=== PATIENT | male | born 1940 | race Caucasian/White ===

== ENCOUNTER → 2024-03-19 12:13 | Outpatient (REF) | payer MEDICARE, OTHER, SELFPAY ==
[2024-03-19 13:35] LABS: % Basophils 0.8 % (0-2); % Eosinophils 3.5 % (0-6); % Immature Granulocytes 0.4 % (0-0.5); % Lymphocytes 14.3 % (20.5-51.1); % Monocytes 10.5 % (1.7-9.3); % Neutrophils 70.5 % (42.2-75.2); Absolute Basophils 0.1 10^3/uL (0-0.2); Absolute Eosinophils 0.3 10^3/uL (0-0.7); Absolute Lymphocytes 1.4 10^3/uL (1.2-3.4); Absolute Neutrophils 6.7 10^3/uL (1.4-6.5); Hematocrit 38.6 % (39.0-52.0); Hemoglobin 13.3 g/dL (13.0-18.0); Mean Corp Hgb Conc. 34.5 g/dL (33.0-37.0); Mean Corpuscular Hgb 33.2 pg (27.0-31.0); Mean Corpuscular Volume 96.3 fL (80.0-94.0); Mean Platelet Volume 10.1 fL (7.4-10.4); Nucleated Red Blood Cells % 0 % (-); Platelet Count 237 10^3/uL (130-400); Red Blood Cell Count 4.01 10^6/uL (4.70-6.10); Red Cell Dist. Width 13.9 % (11.5-14.5); White Blood Cell Count 9.6 10^3/uL (4.8-10.8)
[2024-03-19 14:48] LABS: ALT (SGPT) 15 U/L (0-50); AST (SGOT) 28 U/L (17-59); Albumin 3.5 g/dl (3.5-5.0); Alkaline Phosphatase 83 U/L (38-126); Blood Urea Nitrogen 22 mg/dl (9-20); Calcium 9.2 mg/dl (8.4-10.2); Carbon Dioxide 26 mmol/L (22-30); Chloride 104 mmol/L (98-107); Glucose 61 mg/dl (70-99); Magnesium 2.1 mg/dl (1.6-2.3); Potassium 4.3 mmol/L (3.5-5.1); Sodium 136 mmol/L (135-145); Total Bilirubin 0.5 mg/dl (0.2-1.3); Total Protein 6.1 g/dl (6.3-8.2); eGFR > 60.00
== END ==
LOC: OLABN 12:13
PROVIDERS: ATTENDING PHYSICIAN Student in an Organized Health Care Education/Training Program
DX: R45.1 Restlessness and agitation (principal); L03.119 Cellulitis of unspecified part of limb
CPT/HCPCS: 80053; 83735; 85025

== ENCOUNTER 2024-07-31 19:07 | Inpatient (IN) | payer MEDICARE, OTHER, SELFPAY ==
[2024-07-31] VITALS (9 sets, daily range): BP systolic 97–120; BP diastolic 47–82; BMI 30.9; BMI 29.5
[2024-07-31 14:56] LABS: % Basophils 0.4 % (0-2); % Eosinophils 1.6 % (0-6); % Immature Granulocytes 0.7 % (0-0.5); % Lymphocytes 9.7 % (20.5-51.1); % Monocytes 10.1 % (1.7-9.3); % Neutrophils 77.5 % (42.2-75.2); Absolute Basophils 0.1 10^3/uL (0-0.2); Absolute Eosinophils 0.2 10^3/uL (0-0.7); Absolute Immature Granulocytes 0.1 10^3/uL (0-0.05); Absolute Lymphocytes 1.3 10^3/uL (1.2-3.4); Absolute Monocytes 1.3 10^3/uL (0.1-0.6); Hematocrit 38.2 % (39.0-52.0); Hemoglobin 12.2 g/dL (13.0-18.0); Mean Corp Hgb Conc. 31.9 g/dL (33.0-37.0); Mean Corpuscular Hgb 32.4 pg (27.0-31.0); Mean Corpuscular Volume 101.3 fL (80.0-94.0); Mean Platelet Volume 9.7 fL (7.4-10.4); Nucleated Red Blood Cells % 0 % (-); Platelet Count 263 10^3/uL (130-400); Red Blood Cell Count 3.77 10^6/uL (4.70-6.10)
--- NOTE | 2024-07-31 15:02 | ED.GENMED ---
History of Present Illness
<eLana Tobar PA-C - Last Filed: 07/31/24 18:31>
General
Chief Complaint: Cold/Flu/URI Symptoms
Source: patient and family
Exam Limitations: none
Time Seen by Provider: 07/31/24 14:57
Nursing documentation reviewed up to this point in time: agreed with
History of Present Illness
History of Present Illness:
Patient is an 84-year-old male with history dementia, TBI, hypertension, hyperlipidemia presenting to the emergency department via EMS from [facility] for evaluation of shortness of breath and cough. Patient's daughter states that she had gone
to visit him on Tuesday and noticed that he had nasal/chest congestion. Apparently today patient seemed worse.
Patient endorses body aches and right sided chest discomfort. He states that he feels short of breath. Patient did receive a DuoNeb while at [facility] with some improvement of symptoms. He has had a productive cough with yellow/green sputum.
Patient does have a history of pneumonia. No known history of CHF.
Past History
<Leana Tobar PA-C - Last Filed: 07/31/24 18:31>
Past History
ED Past Medical History: Arrthythmia (afib), Asthma, GERD, HTN, Hypercholesterolemia, Psychiatric (dementia, anxiety) and Other (anemia, hyokalemia)
Social History
Tobacco: Non-smoker
Alcohol: None
Drug: None
Review of Systems
<Leana Tobar PA-C - Last Filed: 07/31/24 18:31>
Review of Systems
Allergies reviewed?: Yes
All Other Systems: ROS reviewed and negative except as documented in HPI and ROS
Phy Exam
<Leana Tobar PA-C - Last Filed: 07/31/24 18:31>
Physical Exam
Physical Exam:
Vitals: Hypoxic with O2 87% on room air, temp of 99.1F. Otherwise vital signs stable
General: Patient is frequently coughing. Resting on my initial examination
Skin: Warm and dry, no rashes or lesions
Head: Normocephalic, atraumatic
Eyes: Sclera nonicteric. EOMs intact. No nystagmus.
Throat: Protecting airway
Neck: Normal ROM, no cervical spine tenderness, no meningismus
Cardiac: Regular rate and rhythm, no murmurs.
Pulm: Hypoxic with oxygen saturation 87% on room air. Mild expiratory wheeze. Frequent cough.
Abdomen: Abdomen soft. No abdominal tenderness.
Extremities: 1+ pitting edema bilateral lower extremities. Palpable DP pulses bilaterally
Neuro: Grossly intact.
Psychiatric: Normal affect.
Course
<Leana Tobar PA-C - Last Filed: 07/31/24 18:31>
Orders/Labs/Results
Orders:
Orders
07/31/24 14:48
COVID-19 Antigen Urgent
Source: Nasal Swab
Complete Blood Count/With Diff Urgent
Comprehensive Metabolic Panel Urgent
NT-proBNP Urgent
Troponin I Urgent
Comment: ADD ON
07/31/24 Dinner
Cholesterol Lowering
At Your Request: Non-Participating
Cholesterol Lowering: Sodium, 2 Gram
07/31/24 15:05
Portable Chest Xray [CR Chest Portable - 1 View] Urgent
Comment:
Reason For Exam: cough, sob, pox 87%RA
Reason Study Needs to be Portable: Unable to Transport
07/31/24 15:24
INF RAPID [Influenza A+B Rapid Molecular] Urgent
JANY Source: Nasal Swab
Specimen Description:
07/31/24 15:25
Add On- LAB Urgent
Tests Added?: troponin
Electrocardiogram (*1) Urgent
Reason for Study: Chest Pain
Acetaminophen [Tylenol] 650 mg PO NOW STA
Ipratropium/Albuterol Sulfate [Duoneb] 3 ml INH R NOW STA
07/31/24 15:26
EKG- Treatment ONCE
07/31/24 16:35
Furosemide [Lasix] 40 mg IV NOW STA
07/31/24 16:45
CefTRIAXone [Rocephin] 1,000 mg IV NOW STA
Furosemide [Lasix] 100 mg IV NOW STA
07/31/24 16:52
Doxycycline Hyclate [Vibramycin] 100 mg 0.9% Sodium Chloride 250 ml [Nss] 250 ml IV NOW
07/31/24 17:44
Lactic Acid Urgent
Procalcitonin Urgent
PCT Algorithmm Indication: Sepsis
Troponin I Urgent
07/31/24 17:45
Electrocardiogram (*1) Urgent
Reason for Study: Chest Pain
EKG- Treatment ONCE
07/31/24 18:25
MRSA Screen Routine
JANY Source: Nose
Specimen Description:
Sputum Culture [Respiratory Culture/Gram Stain] Routine
JANY Source: Sputum
Specimen Description:
07/31/24 18:35
Admit/Transfer Patient As Directed
Co-Sign Provider:
Level of Care: Inpatient admission
Assign to:: Telemetry
Physician / Group: theodore smith
Diagnosis: hypoxia NEW chf, also PNa
Reason for Telemetry: Acute Heart Failure
Date to Stop Telemetry: 08/03/24
Time to Stop Telemetry: 11:00
Reason for Hospitalization: hypoxia NEW chf, also PNa
Expected length of stay greater than two midnights?: Yes
ELOS- Estimated Length of Stay in days: 5
I certify the patient meets the requirements for IP care: Yes
Code Status As Directed
Resuscitation Status: Do not resuscitate
Reached after discussion with pt or family/Healthcare POA: Yes
Based on pt advanced directive or healthcare POA form: Yes
Decision communicated with: Per Yvette and daughter at bedside
07/31/24 18:36
DNR Bracelet Application ONCE
07/31/24 18:40
PRN Pain Medication Management As Directed
May give lesser potent ordered pain med per pt: Yes
preference::
Protocol:: Medication orders for pain may be administered in a
manner that supports deferring to patient preference
when the pt is:
- Requesting an ordered lesser potent pain medication.
Least to most potent pain medications are defined
as: acetaminophen < NSAID < tramadol < opioids
(morphine, oxycodone, hydromorphone).
- Requesting a lesser dose of the same medication IF
ORDERED.
- Requesting a less intrusive route of administration
if both routes are prescribed by the provider (PO <
IV).
07/31/24 19:57
Bisacodyl [Dulcolax] 10 mg RECTAL DAILYPRN PRN
Clobetasol Propionate [Clobetasol Propionate 0.05% Cream] See Dose Instructions TOPICAL BIDPRN PRN
Guaifenesin/Dextromethorphan [Robitussin Dm] 10 ml PO Q4HPRN PRN
Ipratropium/Albuterol Sulfate [Duoneb] 3 ml INH R Q6HPRN PRN
Magnesium Hydroxide [Milk of Magnesia] 30 ml PO HSPRN PRN
07/31/24 19:57
Activity As Directed
Activity Level: With Assistance
Comment: Patient is wheelchair-bound
Intake/ Output As Directed
Frequency: Per unit guidelines
Vital Signs As Directed
Frequency: Per unit guidelines
Weight As Directed
Frequency: Daily
O2 Therapy [RESP] Routine
Nasal Cannula Liter Flow: 3 LPM
Titrate/Wean O2 to maintain O2 sat greater than (%): 92
Pulse Ox/spot Check [RESP] Routine
Quantity: 1
Rx Incentive Spirometry [RESP] Routine
Frequency: q1h while awake
Ot Eval And Treat Routine
Pt Eval And Treat Routine
Treatment: Patient is wheelchair-bound
Activity Level: With Assistance
Speech Therapy Eval & Treat Routine
DX Deep Vein Thrombosis Video Routine
07/31/24 20:00
Piperacillin/Tazo 3.375 Gram [Zosyn] 3.375 gram in 50 ml IV Q6H
Tiotropium Brohard 2.5 Mcg [Spiriva Respimat 2.5 Mcg] 2 puff INH R QPM
07/31/24 21:00
Troponin I Urgent
07/31/24 22:00
Loratadine [Claritin] 10 mg PO HS
Melatonin 10 mg PO HS
Montelukast Sodium [Singulair] 10 mg PO HS
08/01/24 06:00
Echo 2D MMode Color/Doppler IN AM
Reason for Study: NEw chf
Cardiovascular Evaluation IN AM
Complete Blood Count/With Diff IN AM
Comprehensive Metabolic Panel IN AM
08/01/24 08:00
Aspirin Low Dose EC [Aspir Low (Enteric Coated)] 81 mg PO DAILY
Paroxetine [Paxil] 20 mg PO DAILY
08/01/24 08:30
Acetaminophen [Tylenol] 1,000 mg PO TID@0830,1330,1830
08/01/24 18:00
Amlodipine [Norvasc] 10 mg PO QPM
Enoxaparin Sodium [Lovenox] 40 mg SC QPM
08/02/24 06:00
Complete Blood Count/With Diff IN AM
Comprehensive Metabolic Panel IN AM
08/03/24 06:00
Complete Blood Count/With Diff IN AM
Comprehensive Metabolic Panel IN AM
08/03/24 11:00
DC Protocol for Telemetry ONCE
08/04/24 06:00
Complete Blood Count/With Diff IN AM
Comprehensive Metabolic Panel IN AM
Abnormal Lab Results
07/31/24 07/31/24
14:48 17:44
WBC 13.0 H 10^3/uL
(4.8-10.8)
RBC 3.77 L 10^6/uL
(4.70-6.10)
Hgb 12.2 L g/dL
(13.0-18.0)
Hct 38.2 L %
(39.0-52.0)
MCV 101.3 H fL
(80.0-94.0)
MCH 32.4 H pg
(27.0-31.0)
MCHC 31.9 L g/dL
(33.0-37.0)
RDW 15.0 H %
(11.5-14.5)
Abs Immat Gran (auto) 0.1 H 10^3/uL
(0-0.05)
Absolute Neuts (auto) 10.0 H 10^3/uL
(1.4-6.5)
Absolute Monos (auto) 1.3 H 10^3/uL
(0.1-0.6)
Immature Gran % 0.7 H %
(0-0.5)
Neutrophils % 77.5 H %
(42.2-75.2)
Lymphocytes % 9.7 L %
(20.5-51.1)
Monocytes % 10.1 H %
(1.7-9.3)
Potassium 5.2 H mmol/L
(3.5-5.1)
Chloride 108 H mmol/L
(98-107)
Carbon Dioxide 19 L mmol/L
(22-30)
BUN 37 H mg/dl
(9-20)
Glucose 102 H mg/dl
(70-99)
Lactic Acid 2.8 H mmol/L
(0.7-2.0)
AST 86 H U/L
(17-59)
ALT 56 H U/L
(0-50)
Troponin I 0.561 H* ng/ml 0.513 H* ng/ml
07/31/24 14:48
07/31/24 14:48
Vital Signs
Initial and Last Documented VS:
Initial Vital Signs
Pulse Resp Pulse Ox
106 20 94
07/31/24 14:48 07/31/24 14:48 07/31/24 14:48
Last Documented Vital Signs
Temp Pulse Resp BP Pulse Ox
98.5 F 89 20 110/75 95
07/31/24 20:22 07/31/24 20:22 07/31/24 20:22 07/31/24 20:22 07/31/24 20:22
<Lauro Araujo, DO - Last Filed: 07/31/24 20:37>
Orders/Labs/Results
Orders:
Orders
07/31/24 14:48
COVID-19 Antigen Urgent
Source: Nasal Swab
Complete Blood Count/With Diff Urgent
Comprehensive Metabolic Panel Urgent
NT-proBNP Urgent
Troponin I Urgent
Comment: ADD ON
07/31/24 Dinner
Cholesterol Lowering
At Your Request: Non-Participating
Cholesterol Lowering: Sodium, 2 Gram
07/31/24 15:05
Portable Chest Xray [CR Chest Portable - 1 View] Urgent
Comment:
Reason For Exam: cough, sob, pox 87%RA
Reason Study Needs to be Portable: Unable to Transport
07/31/24 15:24
INF RAPID [Influenza A+B Rapid Molecular] Urgent
JANY Source: Nasal Swab
Specimen Description:
07/31/24 15:25
Add On- LAB Urgent
Tests Added?: troponin
Electrocardiogram (*1) Urgent
Reason for Study: Chest Pain
Acetaminophen [Tylenol] 650 mg PO NOW STA
Ipratropium/Albuterol Sulfate [Duoneb] 3 ml INH R NOW STA
07/31/24 15:26
EKG- Treatment ONCE
07/31/24 16:35
Furosemide [Lasix] 40 mg IV NOW STA
07/31/24 16:45
CefTRIAXone [Rocephin] 1,000 mg IV NOW STA
Furosemide [Lasix] 100 mg IV NOW STA
07/31/24 16:52
Doxycycline Hyclate [Vibramycin] 100 mg 0.9% Sodium Chloride 250 ml [Nss] 250 ml IV NOW
07/31/24 17:44
Lactic Acid Urgent
Procalcitonin Urgent
PCT Algorithmm Indication: Sepsis
Troponin I Urgent
07/31/24 17:45
Electrocardiogram (*1) Urgent
Reason for Study: Chest Pain
EKG- Treatment ONCE
07/31/24 18:25
MRSA Screen Routine
JANY Source: Nose
Specimen Description:
Sputum Culture [Respiratory Culture/Gram Stain] Routine
JANY Source: Sputum
Specimen Description:
07/31/24 18:35
Admit/Transfer Patient As Directed
Co-Sign Provider:
Level of Care: Inpatient admission
Assign to:: Telemetry
Physician / Group: theodore smith
Diagnosis: hypoxia NEW chf, also PNa
Reason for Telemetry: Acute Heart Failure
Date to Stop Telemetry: 08/03/24
Time to Stop Telemetry: 11:00
Reason for Hospitalization: hypoxia NEW chf, also PNa
Expected length of stay greater than two midnights?: Yes
ELOS- Estimated Length of Stay in days: 5
I certify the patient meets the requirements for IP care: Yes
Code Status As Directed
Resuscitation Status: Do not resuscitate
Reached after discussion with pt or family/Healthcare POA: Yes
Based on pt advanced directive or healthcare POA form: Yes
Decision communicated with: Per Yvette and daughter at bedside
07/31/24 18:36
DNR Bracelet Application ONCE
07/31/24 18:40
PRN Pain Medication Management As Directed
May give lesser potent ordered pain med per pt: Yes
preference::
Protocol:: Medication orders for pain may be administered in a
manner that supports deferring to patient preference
when the pt is:
- Requesting an ordered lesser potent pain medication.
Least to most potent pain medications are defined
as: acetaminophen < NSAID < tramadol < opioids
(morphine, oxycodone, hydromorphone).
- Requesting a lesser dose of the same medication IF
ORDERED.
- Requesting a less intrusive route of administration
if both routes are prescribed by the provider (PO <
IV).
07/31/24 19:57
Bisacodyl [Dulcolax] 10 mg RECTAL DAILYPRN PRN
Clobetasol Propionate [Clobetasol Propionate 0.05% Cream] See Dose Instructions TOPICAL BIDPRN PRN
Guaifenesin/Dextromethorphan [Robitussin Dm] 10 ml PO Q4HPRN PRN
Ipratropium/Albuterol Sulfate [Duoneb] 3 ml INH R Q6HPRN PRN
Magnesium Hydroxide [Milk of Magnesia] 30 ml PO HSPRN PRN
07/31/24 19:57
Activity As Directed
Activity Level: With Assistance
Comment: Patient is wheelchair-bound
Intake/ Output As Directed
Frequency: Per unit guidelines
Vital Signs As Directed
Frequency: Per unit guidelines
Weight As Directed
Frequency: Daily
O2 Therapy [RESP] Routine
Nasal Cannula Liter Flow: 3 LPM
Titrate/Wean O2 to maintain O2 sat greater than (%): 92
Pulse Ox/spot Check [RESP] Routine
Quantity: 1
Rx Incentive Spirometry [RESP] Routine
Frequency: q1h while awake
Ot Eval And Treat Routine
Pt Eval And Treat Routine
Treatment: Patient is wheelchair-bound
Activity Level: With Assistance
Speech Therapy Eval & Treat Routine
DX Deep Vein Thrombosis Video Routine
07/31/24 20:00
Piperacillin/Tazo 3.375 Gram [Zosyn] 3.375 gram in 50 ml IV Q6H
Tiotropium Brohard 2.5 Mcg [Spiriva Respimat 2.5 Mcg] 2 puff INH R QPM
07/31/24 21:00
Troponin I Urgent
07/31/24 22:00
Loratadine [Claritin] 10 mg PO HS
Melatonin 10 mg PO HS
Montelukast Sodium [Singulair] 10 mg PO HS
08/01/24 06:00
Echo 2D MMode Color/Doppler IN AM
Reason for Study: NEw chf
Cardiovascular Evaluation IN AM
Complete Blood Count/With Diff IN AM
Comprehensive Metabolic Panel IN AM
08/01/24 08:00
Aspirin Low Dose EC [Aspir Low (Enteric Coated)] 81 mg PO DAILY
Paroxetine [Paxil] 20 mg PO DAILY
08/01/24 08:30
Acetaminophen [Tylenol] 1,000 mg PO TID@0830,1330,1830
08/01/24 18:00
Amlodipine [Norvasc] 10 mg PO QPM
Enoxaparin Sodium [Lovenox] 40 mg SC QPM
08/02/24 06:00
Complete Blood Count/With Diff IN AM
Comprehensive Metabolic Panel IN AM
08/03/24 06:00
Complete Blood Count/With Diff IN AM
Comprehensive Metabolic Panel IN AM
08/03/24 11:00
DC Protocol for Telemetry ONCE
08/04/24 06:00
Complete Blood Count/With Diff IN AM
Comprehensive Metabolic Panel IN AM
Abnormal Lab Results
07/31/24 07/31/24
14:48 17:44
WBC 13.0 H 10^3/uL
(4.8-10.8)
RBC 3.77 L 10^6/uL
(4.70-6.10)
Hgb 12.2 L g/dL
(13.0-18.0)
Hct 38.2 L %
(39.0-52.0)
MCV 101.3 H fL
(80.0-94.0)
MCH 32.4 H pg
(27.0-31.0)
MCHC 31.9 L g/dL
(33.0-37.0)
RDW 15.0 H %
(11.5-14.5)
Abs Immat Gran (auto) 0.1 H 10^3/uL
(0-0.05)
Absolute Neuts (auto) 10.0 H 10^3/uL
(1.4-6.5)
Absolute Monos (auto) 1.3 H 10^3/uL
(0.1-0.6)
Immature Gran % 0.7 H %
(0-0.5)
Neutrophils % 77.5 H %
(42.2-75.2)
Lymphocytes % 9.7 L %
(20.5-51.1)
Monocytes % 10.1 H %
(1.7-9.3)
Potassium 5.2 H mmol/L
(3.5-5.1)
Chloride 108 H mmol/L
(98-107)
Carbon Dioxide 19 L mmol/L
(22-30)
BUN 37 H mg/dl
(9-20)
Glucose 102 H mg/dl
(70-99)
Lactic Acid 2.8 H mmol/L
(0.7-2.0)
AST 86 H U/L
(17-59)
ALT 56 H U/L
(0-50)
Troponin I 0.561 H* ng/ml 0.513 H* ng/ml
07/31/24 14:48
07/31/24 14:48
Vital Signs
Initial and Last Documented VS:
Initial Vital Signs
Pulse Resp Pulse Ox
106 20 94
07/31/24 14:48 07/31/24 14:48 07/31/24 14:48
Last Documented Vital Signs
Temp Pulse Resp BP Pulse Ox
98.5 F 89 20 110/75 95
07/31/24 20:22 07/31/24 20:22 07/31/24 20:22 07/31/24 20:22 07/31/24 20:22
<Leaan Tobar PA-C - Last Filed: 07/31/24 18:31>
MDM/Problems Addressed
Differential Diagnosis Includes:
Not limited to: Viral illness, bronchitis, pneumonia, CHF, COPD, asthma, etc.
MDM/Problems Addressed:
84-year-old male presenting with a few days of cough and shortness of breath. No history of CHF. Patient found to be hypoxic to 87% on room air upon arrival to emergency department was placed on 3 L nasal cannula. Patient is a temp of 99.1F.
Otherwise he is stable. Physical exam as above. Patient is resting although with frequent productive cough. Heart regular rate and rhythm. He does have mild increased work of breathing with mild expiratory wheeze. Mild pitting edema of left
lower extremity. Abdomen soft nontender. Clinical picture with higher suspicion for infectious process. Other considerations include CHF, restrictive airway disease, pulmonary edema, etc. Will obtain basic labs, proBNP, troponin, viral swabs,
and chest x-ray. Will give DuoNeb and Tylenol. Will closely monitor and reassess.
Update: Labs reviewed. Leukocytosis of 13.0. Mild anemia. Findings of [place] [address]. Troponin found to be elevated at 0.561. EKG without any acute ischemic changes. Suspect troponin elevation likely
secondary to demand hypoxia. Low suspicion for ACS. Chest x-ray performed which does show pulmonary edema. Clinical picture most suspicious for infectious etiology such as pneumonia. However�there may be a component of CHF, as well. Given
hypoxia�patient will require admission to hospital. Will start patient on IV Rocephin, doxycycline for suspected underlying pneumonia and diurese with IV Lasix.
Chronic conditions affecting care:
Dementia
Acute Exacerbation and/or Progression of Chronic Illness:
N/A
<Leana Tobar PA-C - Last Filed: 07/31/24 18:31>
*Radiology
Radiology exam reviewed: preliminary read by ED provider and radiology read reviewed (Pulmonary edema, possible CHF)
*Pulse Oximetry
Patient hypoxic: yes (O2 87% on room air-placed on nasal cannula)
*EKG
Interpreted by ED Provider?: Yes
EKG Intrepretation Date: 07/31/24
Interpretation: normal
Comparison EKG: no changes
Heart Rate: 83
Rate: normal
Rhythm: sinus
[place]: normal axis
Interval: normal QT interval
QRS Pattern: normal QRS
Ischemia: non-specific ST changes
*[employer] Interpretation
Rate: normal
Interpretation: normal
Heart Rate: 86
Rhythm: sinus
*Critical Care Note
Total Time (30-74mins, 75-104mins- exclusive of procedures): Not Applicable
<Leana Tobar PA-C - Last Filed: 07/31/24 18:31>
Patient Management
Discussion with other providers: Hospitalist
Escalation/DeEscalation of care consider admission/obs:
Admit for IV antibiotics, supplemental oxygen, diuresis
ED Attending Note
<Leana Tobar PA-C - Last Filed: 07/31/24 18:31>
-
Portions of this chart may have been created with voice recognition software.� Occasional wrong word or��sound alike� substitutions may have occurred due to the inherent limitations of voice recognition software.
<Lauro Araujo DO - Last Filed: 07/31/24 20:37>
ED Attending Note
Patient seen and examined by attending physician: Yes
I performed the substantive portion of visit, reviewed & personally made and approve the management plan that is documented in note by myself or KARLEE.: Yes
ED Attending Note:
Patient is a 4-year-old male from a local [facility] who presents with increasing shortness of breath with edema. Approximately a week ago patient was having green nasal discharge and then began to get more short of breath over the last 2 days.
Patient has no history of CHF. Patient has been mildly febrile according to the daughter a couple days ago. On physical exam the patient does appear to be in some respiratory distress with rales and rhonchi throughout. Patient has mild neck vein
distention. Patient also has some peripheral edema. Chest x-ray is consistent with Pulmonary edema. Patient's EKG is normal sinus rhythm with nonspecific ST-T wave changes. Because the patient has been febrile we will start antibiotics and treat
for failure.
Discharge Plan
Departure
Patient Disposition: Admit
Date of Disposition: 07/31/24
Time of Disposition: 16:49
Presentation/result/management discussed w/ accepting MD/DO: Hospitalist
Patient with high blood pressure during this ER visit?: No
Condition: Good
Covid-19: Not Applicable
Discharge Problem:
Community acquired pneumonia, Acute hypoxic respiratory failure, CHF (congestive heart failure)
Interventions
Interventions:
*Risk Screen - Suicide Last Done: 07/31/24 14:49
*General Assessment Last Done: 07/31/24 14:49
*Neglect/Abuse Screening Last Done: 07/31/24 14:49
ED- Fall Risk Assessment Last Done: 07/31/24 19:45
*ED COVID-19 Vaccine History Last Done: 07/31/24 15:03
*Nursing Disposition Last Done: 07/31/24 19:45
ED- Pulmonary Assessment Last Done: 07/31/24 15:00
Discharge Date and Time
Discharge Date/Time: 07/31/24 19:45
[2024-07-31 15:11] LABS: ALT (SGPT) 56 U/L (0-50); AST (SGOT) 86 U/L (17-59); Albumin 3.6 g/dl (3.5-5.0); Alkaline Phosphatase 125 U/L (38-126); Blood Urea Nitrogen 37 mg/dl (9-20); COVID-19 Antigen Negative (Negative); Calcium 9.1 mg/dl (8.4-10.2); Carbon Dioxide 19 mmol/L (22-30); Chloride 108 mmol/L (98-107); Estimated Creatinine Clearance 47 ml/min; Glucose 102 mg/dl (70-99); Potassium 5.2 mmol/L (3.5-5.1); Sodium 139 mmol/L (135-145); Total Bilirubin 0.6 mg/dl (0.2-1.3); Total Protein 6.8 g/dl (6.3-8.2); eGFR > 60.00
[2024-07-31] MEDS: DUONEB 3 ML INH (15:48)
[2024-07-31 15:58] LABS: NT-proBNP 12400 pg/ml
[2024-07-31 16:58] LABS: Troponin I 0.561 ng/ml
[2024-07-31] MEDS: ROCEPHIN 1000 MG IV (17:20)
--- NOTE | 2024-07-31 17:22 | HPS.HSE ---
Family Physician
-
Family Physician: NO INTERVIEW UNKNOWN
Chief Complaint
-
Shortness of breath, productive cough, nasal congestion with green nasal sputum, body aches, right sided chest discomfort
History of Present Illness
84-year-old male from [facility] with history of advanced dementia, wheelchair-bound at nursing facility who was sent for evaluation of shortness of breath and productive yellow/green cough. The daughter reports she saw her father on Tuesday 3
days ago and noticed he had nasal congestion with green runny nose and chest congestion with cough. She asked the facility to give her father a cough medicine. He was placed on dextromethorphan. Apparently today according to staff he seemed worse
was complaining of bodyaches and right sided chest discomfort along with feeling short of breath. He did receive a DuoNeb while at [facility] with some improvement of symptoms. The patient did not complaining of any headache, sore throat,
abdominal pain, nausea, vomiting, diarrhea or urinary symptoms. His daughter reports a history of pneumonia while in the senior care this past year was treated with oral antibiotics and did fine. denies any history of dysphagia states he
eats a regular food does need help with eating due to right hand tremors can drink thin liquids by mouth or with a straw he prefers. He is wheelchair-bound with other past medical history of advanced dementia, chronic headaches from prior ICH, ICH
from mechanical fall 2018, HTN, HLD, RBBB, A-fib, dysphagia, asthma, anxiety/depression, anemia, cataracts, insomnia, right arm cellulitis September 2023 treated with IV antibiotics then oral doxycycline, chronic back pain/vertebral lumbar fracture
from fall 2018
Medical History
Past Medical History
Past Medical History: Reports Other
Additional Past Medical History:
chronic headaches from prior ICH
dementia advanced
ICH from mechanical fall 2018
chronic back pain/vertebral lumbar fracture from fall 2018
HTN
HLD
A-fib
RBBB
GERD
dysphagia
asthma
OA
anxiety
depression
anemia
cataracts
insomnia
hypokalemia.
Past Surgical History: Reports Other (Unsure)
Social History
Tobacco: Non-smoker
Alcohol: None
Drug: None
Personal:
Living: [facility] ([facility])
Employment: Retired
Family History
Family History: Other (Mother cirrhosis, father MD)
Allergies / Home Medications
Allergies reflects when Allergies were last updated in [employer]
Home Medications with original date entered in [employer]
Allergy/Medication List:
Allergies
Allergy/AdvReac Type Severity Reaction Status Date / Time
amantadine Allergy Unknown Verified 07/31/24 14:45
erythromycin base Allergy Unknown Verified 07/31/24 14:45
modafinil Allergy Unknown Verified 07/31/24 14:45
troleandomycin Allergy Unknown Verified 07/31/24 14:45
Home Medications
amlodipine 10 mg tablet 10 mg PO QPM 09/16/23
ipratropium bromide 21 mcg (0.03 %) nasal spray 1 spray intranasal HS 09/16/23
montelukast 10 mg tablet 10 mg PO HS 09/16/23
potassium chloride 10 mEq tablet,extended release 10 meq PO DAILY 09/16/23
umeclidinium 62.5 mcg/actuation blister powder for inhalation (Incruse Ellipta) 1 inh inhalation R QPM 09/16/23
acetaminophen 500 mg tablet 1,000 mg PO TID@0830,1330,1830 09/17/23
aspirin 81 mg tablet,delayed release 81 mg PO DAILY 07/31/24
bisacodyl 10 mg rectal suppository (Dulcolax (bisacodyl)) 10 mg GA DAILYPRN PRN q 3 days when no bm & mom is ineffective 07/31/24
clobetasol 0.05 % topical cream 1 applic topical BIDPRN PRN eczema 07/31/24
dextromethorphan-guaifenesin 10 mg-100 mg/5 mL oral liquid (Tussin DM) 10 ml PO Q4HPRN PRN cough 07/31/24
ipratropium 0.5 mg-albuterol 3 mg (2.5 mg base)/3 mL nebulization soln 3 ml inhalation R Q6HPRN PRN wheezing 07/31/24
loratadine 10 mg tablet 10 mg PO HS 07/31/24
magnesium hydroxide 400 mg/5 mL oral suspension (Milk of Magnesia) 30 ml PO HSPRN PRN constipation/lack of bm 07/31/24
melatonin 10 mg tablet 10 mg PO HS 07/31/24
paroxetine HCl 20 mg tablet 20 mg PO DAILY 07/31/24
pyrithione zinc 1 % shampoo 1 applic topical WESA 07/31/24
Review of Systems
-
History Source: Patient and Family ( and daughter at bedside)
A 12 point ROS was completed and negative except as noted: Yes
Constitutional: Reports Chills; Denies Fever or Fatigue
EENT: Reports Runny Nose (Yellow-green in color); Denies Sore Throat
Respiratory: Reports Cough (Yellow in color) and Trouble Breathing
Cardiac: Denies Chest Pain, Diaphoresis, Palpitations or Syncope
Abdomen/GI: Denies Abdominal Pain, Nausea, Vomiting, Diarrhea or Constipated
: Denies Dysuria, Frequency, Flank Pain, Incontinence or Dark Urine
Musculoskeletal: Reports Muscle Pain (Body aches); Denies Joint Swelling or Edema
Skin: Denies Itching or Rash
Neurological: Reports Weakness (Generalized); Denies Dizzy or Headache
Endocrine: Reports No Symptoms
Hematologic/Lymphatic: Reports No Symptoms
Psych: Reports Other (Dementia, agitates easily)
Physical Exam
Vital Signs
Vital Signs
Temp Pulse Resp BP Pulse Ox
99.1 F 86 22 115/72 97
07/31/24 14:49 07/31/24 16:45 07/31/24 16:45 07/31/24 16:03 07/31/24 16:45
Physical Exam
General: Comfortable (But gets agitated easily when touched) and Obese; No Pain, Fever or Chills
HEENT: NormoCephalic, Anicteric, PERRLA, [place] Conjunctivae, No Ptosis, Oxygen (3 L nasal cannula) and Other (Sinus congestion)
Respiratory: Rhonchi (Throughout both lung bianchi); No Wheezes or Rales
Cardiac: S1/S2 and Regular Rhythm; No Murmur, Rub, Gallop, Peripheral Edema or JVD
Breast: Deferred by me
GI: Soft, Non Tender, Non Distended, Normal Bowel Sounds and No Hepatosplenomegaly
Rectal: Deferred by Provider
Genito-urinary: Deferred by me
Musculoskeletal: No Clubbing, No Cyanosis and No Edema
Skin: Warm and Dry; No Rash
Neuro: Awake, Alert, Oriented (To name is able to follow some commands when being cooperative), Cranial Nerves Intact and No Sensory Deficits; No Slurred Speech, Facial Droop, Tremors or Sedated
Psych: Agitated
Laboratory Results
-
07/31/24 14:48
07/31/24 14:48
Laboratory Results
Total Bilirubin 0.6 mg/dl (0.2-1.3) 07/31/24 14:48
AST 86 U/L (17-59) H 07/31/24 14:48
ALT 56 U/L (0-50) H 07/31/24 14:48
Alkaline Phosphatase 125 U/L (38-126) 07/31/24 14:48
Troponin I 0.561 ng/ml H* 07/31/24 14:48
Impression/Plan
-
Impression/plan:
Admit to Telemetry
#Acute hypoxic respiratory insufficiency secondary to Possible pneumonia
#Incipient SIRS
#Recent PNA at [place] few months ago Treated there With ABX
-Patient lives at [facility]
WBC 13 with left shift, temp 99.1 F, HR 86, 98/52
COVID/influenza negative
-Lactate 2.8, Pro-Angelito pending
-IV Zosyn 3.375 g Q6
-Incentive spirometry
-Continue home ipratropium�albuterol, Incruse Ellipta or equivalent
-Sputum culture, nasal MRSA
-Follow CBC, CMP
-PT/OT/case management eval
#Acute hypoxic respiratory insufficiency secondary NEW onset acute CHF
87% RA, 94% 3 L nasal cannula
BNP 12,400
Monitor I/O, daily weights
-IV Lasix 40 mg once now, held further diuretics due to blood pressure 98/52 will defer to cardiology and watch patient diuresis
-Consult [facility] cardiology
-Check 2D echo
-Family reports has seen Dr. Edgar schmidt which is a personal friend [phone] personal cell you may call and see if he has prior records
#Troponin elevation likely secondary to demand ischemia
Troponin 0.561 > Troponin 0.513 will trend
-Consult [facility] cardiology
EKG: NSR 83 bpm T wave inversions lateral leads, ST depression anterior leads V3 V4
CXR: Cardiomegaly with increased pulmonary vascularity suggesting CHF versus atypical acute pulmonary edema
# Hypertension/HTN-benign
BP 98/52 post IV Lasix
-Continue amlodipine 10 mg daily with hold parameters
#Acute hyperkalemia
K5.2
-Follow BMP
#Renal insufficiency
Creat 1.2 CrCl 47
-Follow BMP
#Acute transaminitis
AST 86, ALT 56 will follow CMP
#Advanced dementia
-Needs assist with all ADLs
#Chronic ambulatory dysfunction-patient is wheelchair-bound
-Uses wheelchair walks once a day with walker and supervision
#HLD
-No current meds
#ICH from fall 2019 with 3 head bleeds, fractured lumbar vertebrae, ribs
#Chronic headaches / neck pain
- cont daily tylenol 1000 mg , ,
#Q-siz-xraiipxpbns
-No rate control meds
-No AC coagulation due to prior ICH and falls
-Patient is on aspirin 81 mg daily from prior admission in September 2023
#RBBB chronic
#Asthma-no acute exacerbation
-Continue ipratropium/albuterol every 6 as needed nebs, Incruse Ellipta 1 inhalation at bedtime, montelukast 10 mg at bedtime
#GERD
-No PPI listed
#Chronic back pain/vertebral lumbar fracture from fall 2019
Patient takes scheduled Tylenol 1000 mg )830,1330,1830
#Anxiety/depression
-Continue paroxetine 20 mg daily
#Insomnia
-Melatonin 10 mg at bedtime hold for sedation
#Eczema
-Continue clobetasol 1 application topical twice daily as needed
#Right arm cellulitis September 2023-no current cellulitis
treated inpatient at [facility] with IV antibiotics then oral doxycycline
DVT prophylaxis
sq lovenox
DNR per Yvette and daughter At bedside
[2024-07-31] MEDS: LASIX 40 MG IV (17:32)
[2024-07-31] MEDS: VIBRAMYCIN 260 MG IV (18:01)
[2024-07-31 18:07] LABS: Lactic Acid 2.8 mmol/L (0.7-2.0)
--- NOTE | 2024-07-31 18:12 | W.PN.UPDATE ---
Update Note
Progress Note Update
This note serves as an addendum to the H&P by coke production heater KARLEE Kiah LE
HPI
84[facility] HX dementia, TBI, A Fib , HTN,HLD seen at ER:-
- per daughter noticed that he had nasal/chest congestion and wore today
- shortness of breath and cough.
- productive cough with yellow/green sputum.
- POS body aches and right sided chest discomfort.
- receive a DuoNeb while at [facility] with some improvement of symptoms.
HX pneumonia. No known history of CHF.
PHX; as above
Reviewed VS:
PE
Gen: frequently coughing
HEENT: anicteric
Neck: supple
Lungs: Mild expiratory wheeze cough with deep breathing
Cor: RRR S1 S2
Abdomen: soft benign
DELIVERY ROUTE DRIVER: NFND
MS: no edema
Psych: limited due to dementia
Laboratory Tests
07/31/24
14:48
WBC 13.0 H
Hgb 12.2 L
MCV 101.3 H
Potassium 5.2 H
Creatinine 1.2
eGFR > 60.00
Troponin I 0.561 H*
Big-D-Siiiwthwdwv Pept 02155
CXR: Cardiomegaly with increased pulmonary vascularity suggesting CHF versus atypical acute pulmonary edema.
Last hospitalist admission: Date of Admission: 09/16/23 - Date of Discharge: 09/18/23
DC DX:
Right arm cellulitis
Advanced dementia
Benign hypertension
History of intracranial hemorrhage
ASSESSMENT & PLAN
Likely PNA with Incipient SIRS
Productive colored sputum
Leucocytosis Rect T 99.1
POS LA 2.8
- check PCT
- Switch to IV Zosyn in place of IV CFTX and Doxy
- O2 support to keep POx above 94
Acute HF : New
No prior HX CHF
- ECHO
- IV Lasix
- IOs and daily Wt
- daily BMP
- [facility] consult
POS TPNI suspect NIMI
- Trend TPNI
- cont ASA
HX Prx AF
-No rate control Meds
Benign HTN
- Continue amlodipine 10 mg daily
HLD
-No current Meds
Dementia advanced
Verbal
WC bound
- 24 Hrs assist with all ADLs
Chronic ambulatory dysfunction
-Uses wheelchair walks once a day with walker and supervision
Chronic back pain
Anxiety/depression
- Continue paroxetine 10 mg daily, Zoloft 25 mg daily
Insomnia
- No current Meds
HX ICH from fall 2018 with 3 head bleeds, fractured lumbar vertebrae, ribs
Chronic headaches / neck pain
- cont daily Tylenol
DVT Px: LMWH
DNR
IP TLM
[2024-07-31 18:21] LABS: Troponin I 0.513 ng/ml
[2024-07-31 18:25] LABS: Procalcitonin 0.09 ng/ml (0.0-0.25)
[2024-07-31] MEDS: SPIRIVA RESPIMAT 2.5 MCG 2 PUFF INH (21:00)
[2024-07-31] MEDS: ZOSYN 50 IV (21:12)
[2024-07-31] MEDS: MELATONIN PO (21:17)
[2024-07-31] MEDS: CLARITIN PO (21:17)
[2024-07-31] MEDS: SINGULAIR PO (21:18)
[2024-07-31 21:36] LABS: Troponin I 0.509 ng/ml
[2024-08-01] VITALS (8 sets, daily range): BP systolic 103–121; BP diastolic 70–85; O2SAT 95; BMI 29.2
[2024-08-01] MEDS: ZOSYN 50 IV ×4 (02:27→20:41)
[2024-08-01] MEDS: TYLENOL 650 MG PO (02:58)
--- NOTE | 2024-08-01 04:34 | DOWNTIME ---
There was a [employer] Downtime on 08/01/2024 from 0100 to 08/01/2024 at 0350. Downtime documentation of patient's care, including medication administrations, has been reconciled in the electronic record per guidelines. Refer to the
patient's paper chart under the miscellaneous tab to see printed paper medication records and downtime forms.
[2024-08-01 07:21] LABS: % Basophils 0.6 % (0-2); % Eosinophils 1.1 % (0-6); % Immature Granulocytes 0.6 % (0-0.5); % Lymphocytes 8.2 % (20.5-51.1); % Monocytes 10.4 % (1.7-9.3); % Neutrophils 79.1 % (42.2-75.2); Absolute Basophils 0.1 10^3/uL (0-0.2); Absolute Eosinophils 0.1 10^3/uL (0-0.7); Absolute Immature Granulocytes 0.1 10^3/uL (0-0.05); Absolute Monocytes 1.3 10^3/uL (0.1-0.6); Absolute Neutrophils 9.8 10^3/uL (1.4-6.5); Hematocrit 37.3 % (39.0-52.0); Hemoglobin 11.9 g/dL (13.0-18.0); Mean Corp Hgb Conc. 31.9 g/dL (33.0-37.0); Mean Corpuscular Hgb 31.8 pg (27.0-31.0); Mean Corpuscular Volume 99.7 fL (80.0-94.0); Nucleated Red Blood Cells % 0 % (-); Platelet Count 262 10^3/uL (130-400); Red Blood Cell Count 3.74 10^6/uL (4.70-6.10); Red Cell Dist. Width 14.7 % (11.5-14.5); White Blood Cell Count 12.4 10^3/uL (4.8-10.8)
[2024-08-01 07:56] LABS: ALT (SGPT) 68 U/L (0-50); AST (SGOT) 86 U/L (17-59); Albumin 3.6 g/dl (3.5-5.0); Alkaline Phosphatase 137 U/L (38-126); Blood Urea Nitrogen 34 mg/dl (9-20); Calcium 9.1 mg/dl (8.4-10.2); Carbon Dioxide 19 mmol/L (22-30); Chloride 108 mmol/L (98-107); Estimated Creatinine Clearance 37 ml/min; Glucose 102 mg/dl (70-99); HDL Cholesterol 27 mg/dl; LDL Cholesterol, Calculated 108 mg/dl; Potassium 4.8 mmol/L (3.5-5.1); Sodium 142 mmol/L (135-145); Total Bilirubin 1.2 mg/dl (0.2-1.3); Total Cholesterol 164 mg/dl (50-199); Total Protein 6.8 g/dl (6.3-8.2); Triglyceride 146 mg/dl (10-149); Very Low Density Lipoprotein 29 mg/dl (0-30); eGFR 54.51
--- NOTE | 2024-08-01 09:40 | CARDSERVDEF ---
Echocardiogram with Definity completed after protocol screening completed. Allergies verified.
Patent IV site: ___R AC__
IV site flushed with 0.9% NaCl pre and post administration.
Diluted bolus method utilized to enhance visualization of ventricular oconnor.
Total volume given: __4__ mL
Patient tolerated all procedures well without complications.
--- NOTE | 2024-08-01 10:41 | CON.CAR ---
Addendum entered and electronically signed by Mil Mann MD 08/01/24 17:23:
84-year-old man admitted with shortness of breath possibly related to both heart failure with unknown EF and pneumonia, proBNP 12,400
PMH: PAF, history of intracranial hemorrhage, right bundle branch block, anxiety depression, dementia and asthma
Allergies: Amantadine, erythromycin, modafinil,
Outpatient meds reviewed. Cardiac meds include amlodipine 10 mg a day, aspirin 81 mg a day, potassium 10 mill equivalents daily
Inpatient meds:Zosyn, Lovenox, amlodipine 10 mg a day, aspirin 81 mg daily, Claritin, Singulair 10 mg a day, paroxetine 20 mg a day, Spiriva, furosemide 40 mg IV daily
112/74, pulse 99, sats 94%, weight is 79.5 kg, down 1 kg from late last night, if accurate down 4.6 kg since admission, intake and output incomplete, patient coughing, does not appear to be in distress, daughters in the room, he is sitting in chair,
lungs are relatively clear, no obvious murmurs, not much edema
Hemoglobin 11.9, white count 12.4, BUN and creatinine 34 and 1.3, troponin 0.56, proBNP 12,400
ECG: Sinus rhythm, first-degree AV block, right bundle branch block, nonspecific ST and T wave changes, inferior AR
Chest x-ray: Looks like pulmonary edema, Linq monitor in place
Echo is pending
Plan:
He appears improved compared to description at the time of admission.
Likely has multifactorial dyspnea, acute heart failure with unknown EF and bronchitis/possible pneumonia
Antibiotics per hospitalist.
Continue IV furosemide, await echocardiogram.
We can consider the addition of SGLT2 antagonist and/or spironolactone.
Hopefully to transition to oral furosemide in 24 to 48 hours.
I called at home and spoke with daughters. Daughter Radha is a friend of Edgarluis e Lucas.
Original Note:
Consultation
Consultation Request
Date/Time Consultation Requested: 08/01/2024
Date/Time Consultation Performed: 08/01/2024
Requesting Provider: Dr. Bell
Performing Provider: Meredith Espino PA-C for Dr. MAU Mann
Reason for Consultation: CHF
Medical History
-
History of Present Illness:
HPI: Srinivas is an 84-year-old male with past medical history of hypertension, hyperlipidemia, paroxysmal atrial fibrillation, asthma, ICH, RBBB, anxiety, depression, and dementia. He presented to ER for evaluation of cough and worsening shortness
of breath. Hypoxic on arrival and placed on nasal cannula. Lab work revealed elevated white count and chest x-ray with CHF and possible pneumonia. Procalcitonin negative. proBNP elevated at 12,400. He was given a dose of IV Lasix in the ER and
notes good response to this. He was admitted for further workup and evaluation. He is being treated with Zosyn for possible pneumonia. No further diuretics given yet today due to hypotension overnight. Troponin also noted to be elevated. Denies
any chest pain currently. Cardiology consulted for evaluation. He reports he previously was seen by Dr. Lucas in the past, however this was quite sometime ago and he has not been seen recently and does not follow regularly with cardiology. He has
reported history of atrial fibrillation, however he is not on anticoagulation and is in sinus rhythm by EKG on arrival to ER. He reports still feels short of breath today and still has productive cough.
PMH:
Hypertension
Hyperlipidemia
Paroxysmal atrial fibrillation
Asthma
h/o ICH
RBBB
Anxiety/depression
Dementia
Past Medical History
Past Medical History: Other (In HPI)
Social History
Tobacco: Non-Smoker
Alcohol: None
Drug: None
Personal:
Living: Skilled Nursing
Employment: Retired
Family History
Family History: CAD
Allergies / Home Medications
Allergy/AdvReac Type Severity Reaction Status Date / Time
amantadine Allergy Unknown Verified 07/31/24 14:45
erythromycin base Allergy Unknown Verified 07/31/24 14:45
modafinil Allergy Unknown Verified 07/31/24 14:45
troleandomycin Allergy Unknown Verified 07/31/24 14:45
�Medication �Instructions �Recorded �Confirmed �Type
amlodipine 10 mg tablet 10 mg PO QPM Blood Pressure 09/16/23 07/31/24 History
ipratropium bromide 21 mcg (0.03 1 spray intranasal HS ASTHMA 09/16/23 07/31/24 History
%) nasal spray
montelukast 10 mg tablet 10 mg PO HS ASTHMA 09/16/23 07/31/24 History
potassium chloride 10 mEq 10 meq PO DAILY HYPOKALEMIA 09/16/23 07/31/24 History
tablet,extended release
umeclidinium 62.5 mcg/actuation 1 inh inhalation R QPM ASTHMA 09/16/23 07/31/24 History
blister powder for inhalation
(Incruse Ellipta)
acetaminophen 500 mg tablet 1,000 mg PO TID@0830,1330,1830 Pain 09/17/23 07/31/24 History
aspirin 81 mg tablet,delayed 81 mg PO DAILY Blood Clot 07/31/24 07/31/24 History
release Prevention/Tx
bisacodyl 10 mg rectal suppository 10 mg MS DAILYPRN PRN q 3 days 07/31/24 07/31/24 History
(Dulcolax (bisacodyl)) when no bm & mom is ineffective
clobetasol 0.05 % topical cream 1 applic topical BIDPRN PRN eczema 07/31/24 07/31/24 History
dextromethorphan-guaifenesin 10 10 ml PO Q4HPRN PRN cough 07/31/24 07/31/24 History
mg-100 mg/5 mL oral liquid (Tussin
DM)
ipratropium 0.5 mg-albuterol 3 mg 3 ml inhalation R Q6HPRN PRN 07/31/24 07/31/24 History
(2.5 mg base)/3 mL nebulization wheezing
soln
loratadine 10 mg tablet 10 mg PO HS 07/31/24 07/31/24 History
magnesium hydroxide 400 mg/5 mL 30 ml PO HSPRN PRN 07/31/24 07/31/24 History
oral suspension (Milk of Magnesia) constipation/lack of bm
melatonin 10 mg tablet 10 mg PO HS 07/31/24 07/31/24 History
paroxetine HCl 20 mg tablet 20 mg PO DAILY Mental 07/31/24 07/31/24 History
Health/Anxiety
pyrithione zinc 1 % shampoo 1 applic topical WESA 07/31/24 07/31/24 History
Review of Systems
-
History Source: Patient
All other systems: Negative unless noted
Physical Exam
Vital Signs
Temp Pulse Resp BP Pulse Ox
98.1 F 89 18 112/76 94
08/01/24 07:00 08/01/24 07:00 08/01/24 07:00 08/01/24 07:00 08/01/24 07:00
Lab Results
08/01/24 06:31
08/01/24 06:31
Troponin I 0.509 ng/ml H* 07/31/24 21:02
Xga-J-Jskszrzetaj Pept 38651 pg/ml 07/31/24 14:48
Physical Exam
General: Well Developed, Well Nourished and No Apparent Distress
HEENT: Normocephalic, Anicteric and Moist Mucous Membranes
Respiratory: Rhonchi and Non Labored Respirations
Cardiac: S1/S2 and Regular Rhythm
Musculoskeletal: No Clubbing, No Cyanosis and Edema
Skin: Warm and Dry
Neuro: Awake, Alert and Nonfocal/Grossly Intact
Psych: Calm
Impression / Plan
-
Cardiology: Seen by Dr. Edgar Lucas in the distant past
Impression:
Presented with SOB
Acute hypoxic respiratory insufficiency
Suspected PNA
Acute HF unknown EF
Elevated troponin
Hyperkalemia
Hypertension
Hyperlipidemia
Paroxysmal atrial fibrillation
Asthma
h/o ICH
RBBB
Anxiety/depression
Dementia
Echo 08/01/2024: Study pending
Plan:
-Presented with productive cough and worsening shortness of breath. Found to be in acute heart failure on arrival with proBNP 12,400.
-Given dose of IV Lasix in ER. Will continue Lasix 40 mg daily.
-Creatinine overall stable at 1.3.
-Continue daily weights, I&O's. Dry weight unknown. Weight down 2lbs overnight at 175 pounds 08/01.
-Check echo. EF unknown.
-Elevated troponin noted at 0.561 on arrival, trending down thereafter. Denies any chest pain currently. Will treat as nonischemic myocardial injury in the setting of acute heart failure and possible pneumonia
-K 5.2 on arrival, down to 4.8 1127. Continue to follow with diuresis.
-For now would continue amlodipine 10 mg daily. BP stable. May need to adjust HTN regimen if EF reduced
-Reported history of paroxysmal atrial fibrillation. Not on anticoagulation due to history of ICH and falls. Continues on aspirin 81 mg daily alone.
-EKG reviewed. Sinus rhythm with RBBB. No acute ischemic changes noted.
-Continue ABX per primary service
-Remains on 3 L NC. Wean as able.
HPI: Srinivas is an 84-year-old male with past medical history of hypertension, hyperlipidemia, paroxysmal atrial fibrillation, asthma, ICH, RBBB, anxiety, depression, and dementia. He presented to ER for evaluation of cough and worsening shortness
of breath. Hypoxic on arrival and placed on nasal cannula. Lab work revealed elevated white count and chest x-ray with CHF and possible pneumonia. Procalcitonin negative. proBNP elevated at 12,400. He was given a dose of IV Lasix in the ER and
notes good response to this. He was admitted for further workup and evaluation. He is being treated with Zosyn for possible pneumonia. No further diuretics given yet today due to hypotension overnight. Troponin also noted to be elevated. Denies
any chest pain currently. Cardiology consulted for evaluation. He reports he previously was seen by Dr. Lucas in the past, however this was quite sometime ago and he has not been seen recently and does not follow regularly with cardiology. He has
reported history of atrial fibrillation, however he is not on anticoagulation and is in sinus rhythm by EKG on arrival to ER. He reports still feels short of breath today and still has productive cough.
Data Reviewed
-
EKG: Tracing Personally Visualized and interpreted
Radiology: Report Reviewed by me
Labs: Labs Reviewed by me
[2024-08-01] MEDS: ASPIR LOW (ENTERIC COATED) 81 MG PO (11:09)
[2024-08-01] MEDS: TYLENOL 1000 MG PO ×3 (11:09→21:47)
[2024-08-01] MEDS: PAXIL 20 MG PO (11:22)
[2024-08-01] MEDS: FLUSH (NSS) 1 FLUSH IV ×2 (11:26→16:53)
[2024-08-01] MEDS: LASIX 40 MG IV (11:26)
--- NOTE | 2024-08-01 13:25 | PTOTSP ---
Speech Therapy Evaluation:
Pt exhibits clinical signs of oropharyngeal dysphagia, likely chronic in nature due to history of advanced dementia, TBI, and GERD compounded by current respiratory/ pulmonary status. Pt remains at risk for aspiration related complications at this
time given tenuous respiratory status, dependence for self-feeding, and being wheelchair bound at baseline.
Recommend:
1. Continue IDDSI Level 7 (regular) and thin liquids
2. Medications whole with thin liquids
3. Aspiration and Reflux precautions: upright all meals, remain upright at least 30 minutes following meal, small bites/sips, slow rate, alternate solids/liquids, monitor CXR and respiratory status, hold PO if mentation not suuportive of oral
intake, d/c oral diet if decline in respiratory status, monitor s/sx of aspiration
4. Oral care 3x/daily
5. Ongoing ST at acute care level to monitor tolerance of current diet level and determine if instrumental assessment warranted
--- NOTE | 2024-08-01 16:34 | W.PN.HOSP.TC ---
Today's Communication/Plan
-
follow labs
continue current Tx
recheck CXR
Assessment / Plan
Assessment / Plan
#Acute hypoxic respiratory insufficiency secondary to Possible pneumonia possibly in combination with CHF
#Incipient SIRS
#[facility]
-Patient lives at [facility]
WBC 13 with left shift, temp 99.1 F, HR 86, 98/52
COVID/influenza negative
-Lactate 2.8, Pro-Angelito pending
-IV Zosyn 3.375 g Q6
-Incentive spirometry
-Continue home ipratropium�albuterol, Incruse Ellipta or equivalent
-Sputum culture, nasal MRSA
-Follow WBC 13.0-->12.4
-PT/OT/case management eval
#Acute hypoxic respiratory insufficiency secondary NEW onset acute CHF
87% RA, 94% 3 L nasal cannula
BNP 12,400
Monitor I/O, daily weights
-IV Lasix 40 mg once now, held further diuretics due to blood pressure 98/52 will defer to cardiology and watch patient diuresis
-Consult [facility]
-Check 2D echo
-Family reports has seen Dr. Edgar schmidt which is a personal friend [phone] personal cell you may call and see if he has prior records
#Troponin elevation likely secondary to demand ischemia
Troponin 0.561 > Troponin 0.513-->0.509 will trend
-Consult [facility]ology
EKG: NSR 83 bpm T wave inversions lateral leads, ST depression anterior leads V3 V4
CXR: Cardiomegaly with increased pulmonary vascularity suggesting CHF versus atypical acute pulmonary edema
# Hypertension/HTN-benign
BP 98/52 post IV Lasix
-Continue amlodipine 10 mg daily with hold parameters
#Acute hyperkalemia
K5.2
-Follow BMP
#Renal insufficiency
Creat 1.2 CrCl 47
-Follow BMP
#Acute transaminitis
AST 86, ALT 56 will follow CMP
#Advanced dementia
-Needs assist with all ADLs
#Chronic ambulatory dysfunction-patient is wheelchair-bound
-Uses wheelchair walks once a day with walker and supervision
#HLD
-No current meds
#ICH from fall 2018 with 3 head bleeds, fractured lumbar vertebrae, ribs
As per dgt, pt became orthostatic, passed out and struck head on concrete steps
#Chronic headaches / neck pain
- cont daily tylenol 1000 mg , ,
#D-fua-nyoczndcpvb
-No rate control meds
-No AC coagulation due to prior ICH and falls
-Patient is on aspirin 81 mg daily from prior admission in September 2023
#RBBB chronic
#Asthma-no acute exacerbation
-Continue ipratropium/albuterol every 6 as needed nebs, Incruse Ellipta 1 inhalation at bedtime, montelukast 10 mg at bedtime
#GERD
-No PPI listed
#Chronic back pain/vertebral lumbar fracture from fall 2018
Patient takes scheduled Tylenol 1000 mg )830,1330,1830
#Anxiety/depression
-Continue paroxetine 20 mg daily
#Insomnia
-Melatonin 10 mg at bedtime hold for sedation
#Eczema
-Continue clobetasol 1 application topical twice daily as needed
#Right arm cellulitis September 2023-no current cellulitis
treated inpatient at [facility] with IV antibiotics then oral doxycycline
DVT prophylaxis
sq lovenox
input of cardio appreciated
Met with family today and extensive review
dgt Radha should be the furs salesperson,
DNR per Yvette and daughter At bedside
Anticipated Discharge: > 48 hours
Subjective/Interval History
-
Date of Service: August 01, 2024
Sitting in chair
Objective Data
-
Labs:
Laboratory Results
08/01/24
06:31
WBC 12.4 H
Hgb 11.9 L
Hct 37.3 L
Plt Count 262
Sodium 142
Potassium 4.8
Chloride 108 H
Carbon Dioxide 19 L
BUN 34 H
Creatinine 1.3
Glucose 102 H
Calcium 9.1
Total Bilirubin 1.2
AST 86 H
ALT 68 H
Alkaline Phosphatase 137 H
Vital Signs:
Vital Signs
Temp Pulse Resp BP Pulse Ox
98.3 F 99 18 112/74 94
08/01/24 16:06 08/01/24 16:06 08/01/24 16:06 08/01/24 16:06 08/01/24 16:06
Review of Systems
-
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
History Source: Family (met with and 2 dgts on second visit to pt)
Constitutional: Denies Fever
EENT: Reports No Symptoms Reported
Respiratory: Reports Cough
Cardiac: Reports No Symptoms
Abdomen/GI: Reports No Symptoms
Physical Exam
-
General: Well Developed, Well Nourished, No Apparent Distress and Appears Chronically Ill
HEENT: Normocephalic, Atraumatic and Moist Mucous Membranes
Respiratory: Rales and Rhonchi (rhonchus cough)
Cardiac: Regular Rhythm and S1/S2
GI: Soft, Nontender and Nondistended
Neuro: Awake; Negative Alert or Oriented
[2024-08-01] MEDS: LOVENOX 40 MG SC (16:51)
[2024-08-01] MEDS: NORVASC 10 MG PO (16:55)
[2024-08-01] MEDS: SPIRIVA RESPIMAT 2.5 MCG 2 PUFF INH (19:31)
[2024-08-01] MEDS: SINGULAIR 10 MG PO (21:48)
[2024-08-01] MEDS: CLARITIN 10 MG PO (21:48)
[2024-08-01] MEDS: MELATONIN 10 MG PO (21:48)
[2024-08-02 03:00] VITALS: BP 112/76
[2024-08-02] MEDS: ZOSYN 50 IV ×4 (03:16→19:26)
[2024-08-02 06:00] VITALS: BMI 28.5
[2024-08-02 07:23] LABS: % Basophils 0.6 % (0-2); % Eosinophils 3.8 % (0-6); % Immature Granulocytes 0.7 % (0-0.5); % Lymphocytes 10.2 % (20.5-51.1); % Monocytes 9.2 % (1.7-9.3); % Neutrophils 75.5 % (42.2-75.2); Absolute Basophils 0.1 10^3/uL (0-0.2); Absolute Eosinophils 0.4 10^3/uL (0-0.7); Absolute Immature Granulocytes 0.1 10^3/uL (0-0.05); Absolute Lymphocytes 1.2 10^3/uL (1.2-3.4); Absolute Monocytes 1.1 10^3/uL (0.1-0.6); Absolute Neutrophils 8.7 10^3/uL (1.4-6.5); Hematocrit 35.8 % (39.0-52.0); Hemoglobin 11.6 g/dL (13.0-18.0); Mean Corp Hgb Conc. 32.4 g/dL (33.0-37.0); Mean Corpuscular Hgb 31.8 pg (27.0-31.0); Mean Corpuscular Volume 98.1 fL (80.0-94.0); Mean Platelet Volume 9.8 fL (7.4-10.4); Nucleated Red Blood Cells % 0 % (-); Platelet Count 242 10^3/uL (130-400); Red Blood Cell Count 3.65 10^6/uL (4.70-6.10); Red Cell Dist. Width 14.5 % (11.5-14.5); White Blood Cell Count 11.5 10^3/uL (4.8-10.8)
[2024-08-02 07:31] LABS: ALT (SGPT) 86 U/L (0-50); AST (SGOT) 97 U/L (17-59); Albumin 3.4 g/dl (3.5-5.0); Alkaline Phosphatase 112 U/L (38-126); Blood Urea Nitrogen 38 mg/dl (9-20); Carbon Dioxide 23 mmol/L (22-30); Chloride 107 mmol/L (98-107); Estimated Creatinine Clearance 32 ml/min; Glucose 86 mg/dl (70-99); Potassium 3.9 mmol/L (3.5-5.1); Sodium 143 mmol/L (135-145); Total Bilirubin 1.1 mg/dl (0.2-1.3); Total Protein 6.5 g/dl (6.3-8.2); eGFR 45.91
[2024-08-02 07:32] VITALS: BP 119/81
[2024-08-02] MEDS: LASIX 40 MG IV (08:39)
[2024-08-02] MEDS: ASPIR LOW (ENTERIC COATED) PO (08:47)
[2024-08-02] MEDS: PAXIL PO (08:48)
[2024-08-02] MEDS: TYLENOL PO ×3 (08:48→17:07)
--- NOTE | 2024-08-02 10:02 | PTCARENOTE ---
patient is drowsy this AM, on 3L O2, audible rhonci. sob with exertion. in for CXR this morning. transfer with 2 ppl ASSIST. incontinent to b/b. complete care provided. offered PO fluids and food, patient refused. currently resting in bed. cont to
monitor
[2024-08-02 11:54] VITALS: BP 102/61
--- NOTE | 2024-08-02 12:13 | CM ---
CM reviewed chart, patient LTC resident at [facility]. Per PT notes, patient is WC bound, assisted with all ADLs, assist of 1 for SPT to , PT recommending home PT/OT when returning to [facility]. PCP Dr. Ventura, pharmacy [facility]. CM will continue to follow for all discharge planning needs.
Plan; return to [facility] LT when stable
[facility]
Report: [phone]
[2024-08-02 15:39] VITALS: BP 115/76
--- NOTE | 2024-08-02 15:55 | W.PN.HOSP.TC ---
Today's Communication/Plan
-
same Tx
Assessment / Plan
Assessment / Plan
#Acute hypoxic respiratory insufficiency secondary to Possible pneumonia possibly in combination with CHF
#Incipient SIRS
#Recent PNA at [facility] few months ago Treated there With ABX
-Patient lives at [facility]
WBC 13-->11.5k
COVID/influenza negative
-Lactate 2.8, Pro-Angelito 0.09
-IV Zosyn 3.375 g Q6
-Incentive spirometry
-Continue home ipratropium�albuterol, Incruse Ellipta or equivalent
-Sputum culture, nasal MRSA
-Follow WBC 13.0-->12.4
-PT/OT/case management eval
#Acute hypoxic respiratory insufficiency secondary NEW onset acute CHF
87% RA, 94% 3 L nasal cannula
BNP 12,400
Monitor I/O, daily weights
-IV Lasix 40 mg once now, held further diuretics due to blood pressure 98/52 will defer to cardiology and watch patient diuresis
-Consulted [facility], input appreciated
- 2D echo: Normal left ventricular chamber size.
Mild concentric left ventricular hypertrophy.
Moderately reduced left ventricular systolic function.
Global hypokinesis, with anteroseptum akinesis.
LV ejection fraction is 30-35% by Hinojosa's method of discs.
Moderate to severe mitral regurgitation.
Mild aortic regurgitation.
Moderate tricuspid regurgitation.
Estimated pulmonary artery pressure of 30-35 mmHg, assuming a right atrial
pressure of 8 mmHg.
Mild pulmonic regurgitation.
Dilated aortic root, measuring 3.7 cm at the sinuses of Valsalva and 2.7 cm at
the sinotubular junction.
The IVC is moderately dilated.
No prior echocardiogram for comparison. The ejection fraction is moderately
reduced.
-Family reports has seen Dr. Edgar schmidt which is a personal friend [phone] personal cell you may call and see if he has prior records
Input of cardio appreciated
#Troponin elevation likely secondary to demand ischemia
Troponin 0.561 > Troponin 0.513-->0.509-->1.38
-Consult [facility]
EKG: NSR 83 bpm T wave inversions lateral leads, ST depression anterior leads V3 V4
CXR: Cardiomegaly with increased pulmonary vascularity suggesting CHF versus atypical acute pulmonary edema
# Hypertension/HTN-benign
BP 102/61 currently
-Continue amlodipine 10 mg daily with hold parameters
#Acute hyperkalemia
K5.2
-Follow BMP
#Renal insufficiency
BUN/Creat 38/1.5
-Follow BMP
08/02 CXR: Findings suggesting CHF with a small probable left pleural effusion. Stable.
Cardiomegaly. Stable
#Acute transaminitis
AST 86, ALT 56 will follow CMP
#Advanced dementia
-Needs assist with all ADLs
#Chronic ambulatory dysfunction-patient is wheelchair-bound
-Uses wheelchair walks once a day with walker and supervision
#HLD
-No current meds
#ICH from fall 2018 with 3 head bleeds, fractured lumbar vertebrae, ribs
As per dgt, pt became orthostatic, passed out and struck head on concrete steps
#Chronic headaches / neck pain
- cont daily tylenol 1000 mg
#O-tsj-asrvcracero
-No rate control meds
-No AC coagulation due to prior ICH and falls
-Patient is on aspirin 81 mg daily from prior admission in September 2023
#RBBB chronic
#Asthma-no acute exacerbation
-Continue ipratropium/albuterol every 6 as needed nebs, Incruse Ellipta 1 inhalation at bedtime, montelukast 10 mg at bedtime
#GERD
-No PPI listed
#Chronic back pain/vertebral lumbar fracture from fall 2018
Patient takes scheduled Tylenol 1000 mg )830,1330,1830
#Anxiety/depression
-Continue paroxetine 20 mg daily
#Insomnia
-Melatonin 10 mg at bedtime hold for sedation
#Eczema
-Continue clobetasol 1 application topical twice daily as needed
#Right arm cellulitis September 2023-no current cellulitis
treated inpatient at [facility] with IV antibiotics then oral doxycycline
DVT prophylaxis
sq lovenox
input of cardio appreciated
Met with family today and extensive review
dgshanelle Garcia should be the personal financial representative,
DNR per Yvette and daughter At bedside
Anticipated Discharge: 24 - 48 hours
Subjective/Interval History
-
Date of Service: August 02, 2024
Sitting in chair. Looks better
Objective Data
-
Labs:
Laboratory Results
08/02/24
06:59
WBC 11.5 H
Hgb 11.6 L
Hct 35.8 L
Plt Count 242
Sodium 143
Potassium 3.9
Chloride 107
Carbon Dioxide 23
BUN 38 H
Creatinine 1.5 H
Glucose 86
Calcium 9.0
Total Bilirubin 1.1
AST 97 H
ALT 86 H
Alkaline Phosphatase 112
Vital Signs:
Vital Signs
Temp Pulse Resp BP Pulse Ox
98.1 F 90 20 102/61 96
08/02/24 11:54 08/02/24 11:54 08/02/24 11:54 08/02/24 11:54 08/02/24 11:54
I&O
08/01/24 08/02/24 08/03/24
06:59 06:59 06:59
Intake Total 760 / 760
Balance 760 / 760
Review of Systems
-
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
History Source: Family (met with swati Garcia today)
Constitutional: Denies Fever
EENT: Reports No Symptoms Reported
Respiratory: Reports Cough
Cardiac: Reports No Symptoms
Abdomen/GI: Reports No Symptoms
Physical Exam
-
General: Well Developed, Well Nourished, No Apparent Distress and Appears Chronically Ill
HEENT: Normocephalic, Atraumatic and Moist Mucous Membranes
Respiratory: Rales; Negative Rhonchi (rhonchus cough resolved)
Cardiac: Regular Rhythm and S1/S2
GI: Soft, Nontender and Nondistended
Neuro: Awake; Negative Alert or Oriented
[2024-08-02] MEDS: NORVASC PO (17:01)
[2024-08-02] MEDS: LOVENOX 40 MG SC (17:02)
--- NOTE | 2024-08-02 17:51 | W.PN.CARDCBS ---
Today's Communication / Plan
-
Oral furosemide
Add atorvastatin
Prognosis guarded
Impression / Plan
-
Cardiology: Seen by Dr. Edgar Lucas in the distant past
Impression:
Presented with SOB
Non-ST segment elevation AK versus non-ACS myocardial injury
Newly diagnosed cardiomyopathy, suspect ischemic
Moderate to severe mitral regurgitation
Acute hypoxic respiratory insufficiency
Suspected PNA
Acute HF unknown EF
Elevated troponin
Hyperkalemia
Hypertension
Hyperlipidemia
Paroxysmal atrial fibrillation, not on anticoagulation
Asthma
h/o ICH
RBBB
Anxiety/depression
Dementia
Right bundle branch block with rate related left bundle branch block on telemetry
Echo 08/01/2024: EF 30-35%, global hypokinesis, anteroseptal akinesis, moderate to severe MR, mild aortic regurgitation, moderate TR, pulmonary artery pressure 30-3mmHg
Telemetry now sinus rhythm, rate related left bundle, with right bundle branch block at baseline
Plan:
Volume status seems improved. He is resting comfortably at the present time.
He has moderate LV dysfunction. I have not yet discussed with family.
Will switch to oral furosemide 40 mg a day. GDMT will be difficult to optimize given blood pressure. Will reduce amlodipine and consider low-dose losartan - could be problematic with CKD and potassium 5.2 on presentation but 3.9 after furosemide.
Consider SGLT 2 antagonist, though utility may be limited given comorbidities. Avoid beta-deysi. Spironolactone may be difficult to use with CKD and initial potassium of 5.2.
Alternating bundle avis block is of concern, will need to discuss with family whether pacemaker, etc. is indicated given underlying dementia, etc. I would favor conservative strategy if family agreeable.
Given history of intracranial hemorrhage, reluctant to add clopidogrel. Continue aspirin 81 mg a day.
Prognosis guarded.
HPI: Srinivas is an 84-year-old male with past medical history of hypertension, hyperlipidemia, paroxysmal atrial fibrillation, asthma, ICH, RBBB, anxiety, depression, and dementia. He presented to ER for evaluation of cough and worsening shortness
of breath. Hypoxic on arrival and placed on nasal cannula. Lab work revealed elevated white count and chest x-ray with CHF and possible pneumonia. Procalcitonin negative. proBNP elevated at 12,400. He was given a dose of IV Lasix in the ER and
notes good response to this. He was admitted for further workup and evaluation. He is being treated with Zosyn for possible pneumonia. No further diuretics given yet today due to hypotension overnight. Troponin also noted to be elevated. Denies
any chest pain currently. Cardiology consulted for evaluation. He reports he previously was seen by Dr. Lucas in the past, however this was quite sometime ago and he has not been seen recently and does not follow regularly with cardiology. He has
reported history of atrial fibrillation, however he is not on anticoagulation and is in sinus rhythm by EKG on arrival to ER. He reports still feels short of breath today and still has productive cough.
Progress Note - [employer]
Subjective
Date of Service: August 02, 2024:
84-year-old man admitted with shortness of breath possibly related to both heart failure with unknown EF and pneumonia, proBNP 12,400
PMH: PAF not on anticoagulation related to history of intracranial hemorrhage, right bundle branch block, anxiety depression, dementia and asthma
Allergies: Amantadine, erythromycin, modafinil,
Outpatient meds reviewed. Cardiac meds include amlodipine 10 mg a day, aspirin 81 mg a day, potassium 10 meq daily
Current medications: Zosyn, subcu Lovenox, amlodipine 10 mg a day, aspirin 81 mg a day, Claritin, Singulair, paroxetine, Spiriva, furosemide 40 mg IV daily
115/76, pulse 67, resp rate 16, weight is 77.7 kg, was if accurate 84.1 kg on admission, down 6.4 kg, intake and output incomplete, asleep did not awaken during exam lungs are clear, soft systolic murmur at apex, JVD not dramatically elevated,
relatively bradycardic and irregular, abdomen benign extremities with 1+-2+ edema
Chest x-ray today looks like CHF, cannot exclude pneumonia
White count 11.5, hemoglobin 11.6, platelets 242, BUN and creatinine 38 and 1.5, creatinine was 1.2 on admission, 1.0 in March, potassium 3.9, 5.2 on admission, peak troponin 1.38
Follow-up EKG, normal sinus rhythm, right bundle branch block, inferior AK, ST segment depression, consider subendocardial injury
Objective
Labs:
08/02/24 06:59
08/02/24 06:59
Labs
Hgb 11.6 g/dL (13.0-18.0) L 08/02/24 06:59
Hct 35.8 % (39.0-52.0) L 08/02/24 06:59
Plt Count 242 10^3/uL (130-400) 08/02/24 06:59
Sodium 143 mmol/L (135-145) 08/02/24 06:59
Potassium 3.9 mmol/L (3.5-5.1) 08/02/24 06:59
BUN 38 mg/dl (9-20) H 08/02/24 06:59
Creatinine 1.5 mg/dL (0.7-1.3) H 08/02/24 06:59
Glucose 86 mg/dl (70-99) 08/02/24 06:59
Troponins
07/31/24 07/31/24 07/31/24
14:48 17:44 21:02
Troponin I 0.561 H* 0.513 H* 0.509 H*
08/02/24
06:59
Troponin I 1.380 H*
Vital Signs and I&O:
Vital Signs
Temp Pulse Resp BP Pulse Ox
36.1 C 67 16 115/76 96
08/02/24 15:39 08/02/24 15:39 08/02/24 15:39 08/02/24 15:39 08/02/24 15:39
Vital Signs
Temp Pulse Resp BP Pulse Ox
36.1 C 67 16 115/76 96
08/02/24 15:39 08/02/24 15:39 08/02/24 15:39 08/02/24 15:39 08/02/24 15:39
Intake & Output
07/31/24 08/01/24 08/02/24 08/03/24
07:59 07:59 07:59 07:59
Intake Total 760 / 760
Balance 760 / 760
Physical Exam
Physical Exam
See above
[2024-08-02] MEDS: SPIRIVA RESPIMAT 2.5 MCG 2 PUFF INH (18:07)
[2024-08-02 19:20] VITALS: BP 114/78
[2024-08-02] MEDS: SINGULAIR 10 MG PO (22:17)
[2024-08-02] MEDS: CLARITIN 10 MG PO (22:17)
[2024-08-02] MEDS: MELATONIN 10 MG PO (22:18)
[2024-08-02 22:57] VITALS: BP 114/76
[2024-08-03] MEDS: ZOSYN 50 IV ×4 (01:06→20:16)
[2024-08-03 03:09] VITALS: BP 111/69
[2024-08-03 06:00] VITALS: BMI 27.8
[2024-08-03 07:00] VITALS: BP 119/83
[2024-08-03] MEDS: LASIX 40 MG PO (07:59)
[2024-08-03] MEDS: PAXIL 20 MG PO (07:59)
[2024-08-03] MEDS: ASPIR LOW (ENTERIC COATED) 81 MG PO (07:59)
[2024-08-03] MEDS: TYLENOL 1000 MG PO ×3 (08:02→17:59)
[2024-08-03 09:14] LABS: % Basophils 0.8 % (0-2); % Eosinophils 3.6 % (0-6); % Immature Granulocytes 0.4 % (0-0.5); % Lymphocytes 10.5 % (20.5-51.1); % Monocytes 10.3 % (1.7-9.3); % Neutrophils 74.4 % (42.2-75.2); Absolute Basophils 0.1 10^3/uL (0-0.2); Absolute Eosinophils 0.4 10^3/uL (0-0.7); Absolute Lymphocytes 1.2 10^3/uL (1.2-3.4); Absolute Monocytes 1.1 10^3/uL (0.1-0.6); Absolute Neutrophils 8.3 10^3/uL (1.4-6.5); Hematocrit 36.9 % (39.0-52.0); Hemoglobin 12.4 g/dL (13.0-18.0); Mean Corp Hgb Conc. 33.6 g/dL (33.0-37.0); Mean Corpuscular Hgb 32.5 pg (27.0-31.0); Mean Corpuscular Volume 96.9 fL (80.0-94.0); Mean Platelet Volume 10.2 fL (7.4-10.4); Nucleated Red Blood Cells % 0 % (-); Platelet Count 264 10^3/uL (130-400); Red Blood Cell Count 3.81 10^6/uL (4.70-6.10); Red Cell Dist. Width 14.6 % (11.5-14.5); White Blood Cell Count 11.1 10^3/uL (4.8-10.8)
--- NOTE | 2024-08-03 09:31 | PN.CDI ---
CDI
- -
CDI:
Physician Documentation Request
Admit Date: 07/31/24 19:07
Dear Doctor Ko,
Please review the following and provide your response in the progress notes.
Clinical Indicators:
Pt admitted with Pneumonia/CHF
Documented per 08/02 Progress note ,' Acute hypoxic respiratory insufficiency secondary NEW onset acute CHF...BNP 12,400 Monitor I/O, daily weights IV Lasix 40 mg once now, held further diuretics due to blood pressure 98/52 will defer to
cardiology...2D echo.....LV ejection fraction is 30-35%....'
Please provide further specificity regarding the most likely type of CHF you are evaluating, treating or monitoring.
Acute Systolic CHF
Acute combined CHF
Other ( please specify)
Use of terms such as suspected, likely, concern for, or probable (associated with a specific diagnosis that is being evaluated, monitored, or treated as if it exists) are acceptable and can be coded in the inpatient setting, when documented at the
time of discharge.
Thank you,
Sharon Polanco RN
CDI Specialist
[place] [facility]
Please use your independent medical judgment in providing your response.
--- NOTE | 2024-08-03 09:43 | PN.CDI ---
CDI
- -
CDI:
Physician Documentation Request
Admit Date: 07/31/24 19:07
Dear Doctor Ko,
Please review the following and provide your response in the progress notes.
Clinical Indicators:
Pt admitted with Pneumonia/CHF
Documented per H&P and progress notes 08/01 & 08/02,' Acute hypoxic respiratory insufficiency secondary to Possible pneumonia#Incipient SIRS...WBC 13 with left shift....-IV Zosyn 3.375 g Q6....
On admission WBC 13, HR 106, Respirations 26
Please clarify which of the following most accurately describes the status of the patient's infection:
Sepsis-POA
- Systemic manifestations of infection, with 2 or more SIRS criteria which include:
- Fever >100.4 degrees F or hypothermia < 96.8 degrees F
- Leukocytosis - WBC > 12,000 or leukopenia - WBC < 4,000 or > 10% bands
- Tachycardia > 90 beats per minute
- Tachypnea - RR > 20 breaths per minute or PaCO2 , 32mmHg
Source: Merck Manual 2013
Pneumonia Only , Without Systemic Illness
Other ( please specify )
Use of terms such as suspected, likely, concern for, or probable (associated with a specific diagnosis that is being evaluated, monitored, or treated as if it exists) are acceptable and can be coded in the inpatient setting, when documented at the
time of discharge.
Thank you,
Sharon Poalnco RN
CDI Specialist
[place] [facility]
Please use your independent medical judgment in providing your response.
[2024-08-03 09:46] LABS: ALT (SGPT) 82 U/L (0-50); AST (SGOT) 75 U/L (17-59); Albumin 3.5 g/dl (3.5-5.0); Alkaline Phosphatase 120 U/L (38-126); Blood Urea Nitrogen 36 mg/dl (9-20); Carbon Dioxide 23 mmol/L (22-30); Chloride 106 mmol/L (98-107); Estimated Creatinine Clearance 37 ml/min; Glucose 67 mg/dl (70-99); Potassium 3.6 mmol/L (3.5-5.1); Sodium 142 mmol/L (135-145); Total Bilirubin 1.2 mg/dl (0.2-1.3); Total Protein 6.6 g/dl (6.3-8.2); eGFR 54.51
--- NOTE | 2024-08-03 09:47 | PN.CDI ---
CDI
- -
CDI:
Physician Documentation Request
Admit Date: 07/31/24 19:07
Dear Doctor Ko,
Please review the following and provide your response in the progress notes.
Clinical Indicators:
Pt admitted with Pneumonia/CHF
Documented per H&P and progress note 08/01&08/02, ' #Renal insufficiency..Follow BMP....'
Renal functions are as below
07/31/24 08/01/24 08/02/24
14:48 06:31 06:59
Creatinine 1.2 1.3 1.5 H
eGFR > 60.00 54.51 45.91
08/03/24
06:54
Creatinine 1.3
eGFR 54.51
Clarify which of the following accurately represents the patient's renal status:
REHANA
Renal Insufficiency only
Other ( please specify)
Criteria for REHANA*
1 Increase in serum creatinine by > or = to 0.3 mg/dL (> or = to 26.5 micromol/L) within 48 hours, OR
2 Increase in serum creatinine to > or = to 1.5 times baseline, which is known or presumed to have occurred within 7 days, OR
3 Urine volume < 0.5 nL/kg/hour for six hours
Use of terms such as suspected, likely, concern for, or probable (associated with a specific diagnosis that is being evaluated, monitored, or treated as if it exists) are acceptable and can be coded in the inpatient setting, when documented at the
time of discharge.
Thank you,
Sharon Polanco RN
CDI Specialist
[place] [facility]
Please use your independent medical judgment in providing your response.
*Source: Kidney Disease: Improving Global Outcomes (KDIGO) 2012
--- NOTE | 2024-08-03 10:43 | W.PN.CARDCBS ---
Today's Communication / Plan
-
conservative mgmt of CHF, CM, and suspected CAD
po lasix 40mg daily
asa 81mg daily
lipitor 40mg QPM
echo reviewed with family
wean supp O2
DC planning
will arrange OP cardiac follow up
CMP in 1 week upon DC
Impression / Plan
-
Cardiology: Seen by Dr. Edgar Lucas in the distant past
Impression:
Presented with SOB
Acute HFrEF
Newly diagnosed cardiomyopathy, suspect ischemic
Moderate to severe mitral regurgitation
Acute hypoxic respiratory insufficiency
Suspected PNA
Elevated troponin, suspected nonischemic myocardial injury
Hyperkalemia
Hypertension
Elevated LFTs
Hyperlipidemia
Paroxysmal atrial fibrillation, not on anticoagulation
Asthma
h/o ICH
RBBB
Anxiety/depression
Dementia
Right bundle branch block with rate related left bundle branch block on telemetry
Echo 08/01/2024: EF 30-35%, global hypokinesis, anteroseptal akinesis, moderate to severe MR, mild aortic regurgitation, moderate TR, pulmonary artery pressure 30-3mmHg
Telemetry now sinus rhythm, rate related left bundle, with right bundle branch block at baseline
Plan:
-he continues to improve from volume standpoint. daughter at bedside reports significant improvement from admission. weight down 10 pounds if accurate. now on po lasix 40mg daily
-wean supp O2 as able
-results of echocardiogram discussed with daughter at bedside and mother via telephone. EF 30-35% with mod to severe MR. discussed he likely has underlying CAD as well (peak trop 0.56) however he is unlikely candidate for any procedures given his
comorbidities and they agreed with plan for conservative mgmt.
-plan for medical mgmt of cardiomyopathy, valvular disease, and elevated troponin. continue asa, statin, lasix. not adding plavix due to history of ICH
-norvasc dose reduced to 5mg QPM. avoiding BB given alternating R/LBBB. would avoid sade/arb/arni/aldactone/SGLT2 inhibitor given RI and relative hypotension
-DNR code status
-will arrange OP cardiac follow up
-CMP in 1 week upon DC
-plan to return to intermediate upon DC
HPI: Srinivas is an 84-year-old male with past medical history of hypertension, hyperlipidemia, paroxysmal atrial fibrillation, asthma, ICH, RBBB, anxiety, depression, and dementia. He presented to ER for evaluation of cough and worsening shortness
of breath. Hypoxic on arrival and placed on nasal cannula. Lab work revealed elevated white count and chest x-ray with CHF and possible pneumonia. Procalcitonin negative. proBNP elevated at 12,400. He was given a dose of IV Lasix in the ER and
notes good response to this. He was admitted for further workup and evaluation. He is being treated with Zosyn for possible pneumonia. No further diuretics given yet today due to hypotension overnight. Troponin also noted to be elevated. Denies
any chest pain currently. Cardiology consulted for evaluation. He reports he previously was seen by Dr. Lucas in the past, however this was quite sometime ago and he has not been seen recently and does not follow regularly with cardiology. He has
reported history of atrial fibrillation, however he is not on anticoagulation and is in sinus rhythm by EKG on arrival to ER. He reports still feels short of breath today and still has productive cough.
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
Subjective
Date of Service: August 03, 2024
reports breathing improving.
Objective
Labs:
08/03/24 06:54
08/03/24 06:54
Labs
Hgb 12.4 g/dL (13.0-18.0) L 08/03/24 06:54
Hct 36.9 % (39.0-52.0) L 08/03/24 06:54
Plt Count 264 10^3/uL (130-400) 08/03/24 06:54
Sodium 142 mmol/L (135-145) 08/03/24 06:54
Potassium 3.6 mmol/L (3.5-5.1) 08/03/24 06:54
BUN 36 mg/dl (9-20) H 08/03/24 06:54
Creatinine 1.3 mg/dL (0.7-1.3) 08/03/24 06:54
Glucose 67 mg/dl (70-99) L 08/03/24 06:54
Troponins
07/31/24 07/31/24 07/31/24
14:48 17:44 21:02
Troponin I 0.561 H* 0.513 H* 0.509 H*
08/02/24
06:59
Troponin I 1.380 H*
Vital Signs and I&O:
Vital Signs
Temp Pulse Resp BP Pulse Ox
97.8 F 83 18 119/83 97
08/03/24 07:00 08/03/24 07:00 08/03/24 07:00 08/03/24 07:00 08/03/24 07:00
Vital Signs
Temp Pulse Resp BP Pulse Ox
97.8 F 83 18 119/83 97
08/03/24 07:00 08/03/24 07:00 08/03/24 07:00 08/03/24 07:00 08/03/24 07:00
Intake & Output
08/01/24 08/02/24 08/03/24 08/04/24
07:59 07:59 07:59 07:59
Intake Total 760 / 760 250 / 250
Balance 760 / 760 250 / 250
Physical Exam
Physical Exam
GEN: No distress, awake, lethargic, oriented to self. sitting in chair. on supp O2
HEENT: supple, anicteric, mmm, eomi
LUNGS: Crackles LLB, no wheezes
CV: Reg, S1/S2, 2/6 apex murmur
ABD: soft, BS+, NT/ND
EXT: No cyanosis, clubbing. trace edema of LLE
NEURO: Gross non-focal
SKIN: Warm, pink, dry. No rash
[2024-08-03 11:15] VITALS: BP 103/67
--- NOTE | 2024-08-03 12:56 | CM ---
CM reviewed chart, patients seen in hallway with nurse, inquiring about palliative care/hospice. reports she is not interested in palliative care or hospice, her daughter was inquiring about it. tearful, reports she is recovering from
double mastectomy, has a lot of health issues going on. reports her daughter lives close to [facility] and checks on patient regularly. CM offered support to , will continue to follow for all discharge planning needs.
Plan; return to [facility] when stable, if over weekend, please call admissions and ask for nursing last model department supervisor.
[facility]
Report: [phone]
[2024-08-03 15:23] VITALS: BP 109/73
--- NOTE | 2024-08-03 16:16 | W.PN.HOSP.TC ---
Today's Communication/Plan
-
Potential dc to SNF tomorrow
Assessment / Plan
Assessment / Plan
#Acute hypoxic respiratory insufficiency secondary to aspiration bronchitis possibly in combination with CHF
#Incipient SIRS
#Recent PNA at [place] few months ago Treated there With ABX
-Patient lives at [facility]
WBC 13-->11.5-->11.1k
COVID/influenza negative
-Lactate 2.8, Pro-Angelito 0.09
-IV Zosyn 3.375 g Q6
-Incentive spirometry
-Continue home ipratropium�albuterol, Incruse Ellipta or equivalent
-Sputum culture, nasal MRSA
-PT/OT/case management eval\\
REHANA associated with acute illness, resolved
Sepsis-POA
low grade without fever, mild leukocytosis, aspiration bronchitis/PNA, tachycardia
Acute on Chronic HFrEF
#Acute hypoxic respiratory insufficiency secondary NEW onset acute CHF
87% RA, 94% 3 L nasal cannula-->now 96% on room air
BNP 12,400
Monitor I/O, daily weights
-IV Lasix 40 mg once now, held further diuretics due to blood pressure 98/52 will defer to cardiology and watch patient diuresis
-Consulted [facility] cardiology, input appreciated
- 2D echo: Normal left ventricular chamber size.
Mild concentric left ventricular hypertrophy.
Moderately reduced left ventricular systolic function.
Global hypokinesis, with anteroseptum akinesis.
LV ejection fraction is 30-35% by Hinojosa's method of discs.
Moderate to severe mitral regurgitation.
Mild aortic regurgitation.
Moderate tricuspid regurgitation.
Estimated pulmonary artery pressure of 30-35 mmHg, assuming a right atrial
pressure of 8 mmHg.
Mild pulmonic regurgitation.
Dilated aortic root, measuring 3.7 cm at the sinuses of Valsalva and 2.7 cm at
the sinotubular junction.
The IVC is moderately dilated.
No prior echocardiogram for comparison. The ejection fraction is moderately
reduced.
-Family reports has seen Dr. Edgar schmidt which is a personal friend [phone] personal cell you may call and see if he has prior records
Input of cardio appreciated
#Troponin elevation likely secondary to demand ischemia
Troponin 0.561 > Troponin 0.513-->0.509-->1.38
-Consult [facility] cardiology
EKG: NSR 83 bpm T wave inversions lateral leads, ST depression anterior leads V3 V4
CXR: Cardiomegaly with increased pulmonary vascularity suggesting CHF versus atypical acute pulmonary edema
# Hypertension/HTN-benign
BP 102/61 currently
-Continue amlodipine 10 mg daily with hold parameters
#Acute hyperkalemia
K5.2
-Follow BMP
#Renal insufficiency
BUN/Creat 38/1.5
-Follow BMP
08/02 CXR: Findings suggesting CHF with a small probable left pleural effusion. Stable.
Cardiomegaly. Stable
#Acute transaminitis
AST 86, ALT 56 will follow CMP
#Advanced dementia
-Needs assist with all ADLs
#Chronic ambulatory dysfunction-patient is wheelchair-bound
-Uses wheelchair walks once a day with walker and supervision
#HLD
-No current meds
#ICH from fall 2019 with 3 head bleeds, fractured lumbar vertebrae, ribs
As per dgt, pt became orthostatic, passed out and struck head on concrete steps
#Chronic headaches / neck pain
- cont daily tylenol 1000 mg , ,
#A-gms-avswkbdvpwz
-No rate control meds
-No AC coagulation due to prior ICH and falls
-Patient is on aspirin 81 mg daily from prior admission in September 2023
#RBBB chronic
#Asthma-no acute exacerbation
-Continue ipratropium/albuterol every 6 as needed nebs, Incruse Ellipta 1 inhalation at bedtime, montelukast 10 mg at bedtime
#GERD
-No PPI listed
#Chronic back pain/vertebral lumbar fracture from fall 2018
Patient takes scheduled Tylenol 1000 mg )830,1330,1830
#Anxiety/depression
-Continue paroxetine 20 mg daily
#Insomnia
-Melatonin 10 mg at bedtime hold for sedation
#Eczema
-Continue clobetasol 1 application topical twice daily as needed
#Right arm cellulitis September 2023-no current cellulitis
treated inpatient at [facility] with IV antibiotics then oral doxycycline
DVT prophylaxis
sq lovenox
input of cardio appreciated
Met with family today and extensive review
swati Garcia should be the yellow pages space salesperson,
full review with Alfredo avelar MD
DNR per Yvette and daughter At bedside
Anticipated Discharge: Within 24 hours
Subjective/Interval History
-
Date of Service: August 03, 2024
Sitting in chair, appears comfortable
Objective Data
-
Labs:
Laboratory Results
08/03/24
06:54
WBC 11.1 H
Hgb 12.4 L
Hct 36.9 L
Plt Count 264
Sodium 142
Potassium 3.6
Chloride 106
Carbon Dioxide 23
BUN 36 H
Creatinine 1.3
Glucose 67 L
Calcium 9.0
Total Bilirubin 1.2
AST 75 H
ALT 82 H
Alkaline Phosphatase 120
Vital Signs:
Vital Signs
Temp Pulse Resp BP Pulse Ox
97.6 F 98 16 109/73 96
08/03/24 15:23 08/03/24 15:23 08/03/24 15:23 08/03/24 15:23 08/03/24 15:23
I&O
08/02/24 08/03/24 08/04/24
06:59 06:59 06:59
Intake Total 760 / 760 250 / 250
Balance 760 / 760 250 / 250
Review of Systems
-
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
History Source: Family (met with , dgt and s-i-l in room)
Constitutional: Denies Fever
EENT: Reports No Symptoms Reported
Respiratory: Reports Cough
Cardiac: Reports No Symptoms
Abdomen/GI: Reports No Symptoms
Physical Exam
-
General: Well Developed, Well Nourished, No Apparent Distress and Appears Chronically Ill
HEENT: Normocephalic, Atraumatic and Moist Mucous Membranes
Respiratory: Rales; Negative Rhonchi (rhonchus cough resolved)
Cardiac: Regular Rhythm and S1/S2
GI: Soft, Nontender and Nondistended
Neuro: Awake; Negative Alert or Oriented
[2024-08-03] MEDS: LIPITOR 40 MG PO (17:44)
[2024-08-03] MEDS: LOVENOX 40 MG SC (17:44)
[2024-08-03] MEDS: NORVASC 5 MG PO (17:59)
[2024-08-03] MEDS: SPIRIVA RESPIMAT 2.5 MCG 2 PUFF INH (19:21)
[2024-08-03 19:57] VITALS: BP 112/66
[2024-08-03] MEDS: MELATONIN 10 MG PO (23:37)
[2024-08-03] MEDS: SINGULAIR 10 MG PO (23:37)
[2024-08-03] MEDS: CLARITIN 10 MG PO (23:37)
[2024-08-03 23:43] VITALS: BP 150/86
[2024-08-04] MEDS: ZOSYN 50 IV ×3 (01:37→15:15)
[2024-08-04 03:27] VITALS: BP 117/80
[2024-08-04 06:54] VITALS: BMI 28.0
[2024-08-04 07:42] LABS: % Basophils 0.6 % (0-2); % Eosinophils 3.5 % (0-6); % Immature Granulocytes 0.6 % (0-0.5); % Lymphocytes 10.7 % (20.5-51.1); % Monocytes 9.4 % (1.7-9.3); % Neutrophils 75.2 % (42.2-75.2); Absolute Basophils 0.1 10^3/uL (0-0.2); Absolute Eosinophils 0.4 10^3/uL (0-0.7); Absolute Immature Granulocytes 0.1 10^3/uL (0-0.05); Absolute Lymphocytes 1.3 10^3/uL (1.2-3.4); Absolute Monocytes 1.1 10^3/uL (0.1-0.6); Hematocrit 37.7 % (39.0-52.0); Hemoglobin 12.5 g/dL (13.0-18.0); Mean Corp Hgb Conc. 33.2 g/dL (33.0-37.0); Mean Corpuscular Hgb 32.2 pg (27.0-31.0); Mean Corpuscular Volume 97.2 fL (80.0-94.0); Mean Platelet Volume 9.7 fL (7.4-10.4); Nucleated Red Blood Cells % 0 % (-); Platelet Count 251 10^3/uL (130-400); Red Blood Cell Count 3.88 10^6/uL (4.70-6.10); Red Cell Dist. Width 14.6 % (11.5-14.5)
[2024-08-04] MEDS: PAXIL 20 MG PO (07:48)
[2024-08-04] MEDS: LASIX 40 MG PO (07:48)
[2024-08-04] MEDS: ASPIR LOW (ENTERIC COATED) 81 MG PO (07:48)
[2024-08-04 07:49] VITALS: BP 115/74
[2024-08-04] MEDS: TYLENOL 1000 MG PO ×3 (07:51→18:40)
[2024-08-04 08:31] LABS: ALT (SGPT) 59 U/L (0-50); AST (SGOT) 53 U/L (17-59); Albumin 3.5 g/dl (3.5-5.0); Alkaline Phosphatase 90 U/L (38-126); Blood Urea Nitrogen 35 mg/dl (9-20); Carbon Dioxide 25 mmol/L (22-30); Chloride 105 mmol/L (98-107); Estimated Creatinine Clearance 35 ml/min; Glucose 80 mg/dl (70-99); Potassium 3.9 mmol/L (3.5-5.1); Sodium 142 mmol/L (135-145); Total Bilirubin 1.1 mg/dl (0.2-1.3); Total Protein 6.9 g/dl (6.3-8.2); eGFR 49.87
[2024-08-04 11:00] VITALS: BP 99/63
--- NOTE | 2024-08-04 12:08 | W.PN.CARDCBS ---
Today's Communication / Plan
-
Plan for discharge back to nursing facility today
Continue Lasix 40 mg daily
Outpatient cardiac follow-up to be arranged
Impression / Plan
-
Cardiology: Seen by Dr. Edgar Lucas in the distant past
Impression:
Presented with SOB
Acute HFrEF
Newly diagnosed cardiomyopathy, suspect ischemic
Moderate to severe mitral regurgitation
Acute hypoxic respiratory insufficiency
Suspected PNA
Elevated troponin, suspected nonischemic myocardial injury
Hyperkalemia
Hypertension
Elevated LFTs
Hyperlipidemia
Paroxysmal atrial fibrillation, not on anticoagulation
Asthma
h/o ICH
RBBB
Anxiety/depression
Dementia
Right bundle branch block with rate related left bundle branch block on telemetry
Echo 08/01/2024: EF 30-35%, global hypokinesis, anteroseptal akinesis, moderate to severe MR, mild aortic regurgitation, moderate TR, pulmonary artery pressure 30-3mmHg
Telemetry now sinus rhythm, rate related left bundle, with right bundle branch block at baseline
Plan:
-Newly diagnosed suspected ischemic cardiomyopathy with acute HFrEF
-Volume status has improved with IV diuretics and he has been transition to oral Lasix 40 mg daily yesterday
- Echocardiogram this admission found EF 30-35% with mod to severe MR; peak trop 0.56
-These findings were previously discussed with family. He was felt to be not a good candidate for any procedures given his comorbidities and they agreed with plan for conservative mgmt.
-Plan for conservative medical therapy: continue asa, statin, lasix. not adding plavix due to history of ICH
-norvasc dose reduced to 5mg QPM. avoiding BB given alternating R/LBBB.
-For now, we will not initiate sade/arb/arni/aldactone
-Consider addition of SGLT2 inhibitor as an outpatient
-DNR code status
-will arrange OP cardiac follow up
-CMP in 1 week upon DC
-Plan discussed with hospitalist and
HPI: Srinivas is an 84-year-old male with past medical history of hypertension, hyperlipidemia, paroxysmal atrial fibrillation, asthma, ICH, RBBB, anxiety, depression, and dementia. He presented to ER for evaluation of cough and worsening shortness
of breath. Hypoxic on arrival and placed on nasal cannula. Lab work revealed elevated white count and chest x-ray with CHF and possible pneumonia. Procalcitonin negative. proBNP elevated at 12,400. He was given a dose of IV Lasix in the ER and
notes good response to this. He was admitted for further workup and evaluation. He is being treated with Zosyn for possible pneumonia. No further diuretics given yet today due to hypotension overnight. Troponin also noted to be elevated. Denies
any chest pain currently. Cardiology consulted for evaluation. He reports he previously was seen by Dr. Lucas in the past, however this was quite sometime ago and he has not been seen recently and does not follow regularly with cardiology. He has
reported history of atrial fibrillation, however he is not on anticoagulation and is in sinus rhythm by EKG on arrival to ER. He reports still feels short of breath today and still has productive cough.
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
Subjective
Date of Service: August 04, 2024
Patient seen and examined. Sitting out of bed to chair but not able to provide review of systems with prior history of traumatic brain injury. at bedside and provided update
Objective
Labs:
08/04/24 07:12
08/04/24 07:12
Labs
Hgb 12.5 g/dL (13.0-18.0) L 08/04/24 07:12
Hct 37.7 % (39.0-52.0) L 08/04/24 07:12
Plt Count 251 10^3/uL (130-400) 08/04/24 07:12
Sodium 142 mmol/L (135-145) 08/04/24 07:12
Potassium 3.9 mmol/L (3.5-5.1) 08/04/24 07:12
BUN 35 mg/dl (9-20) H 08/04/24 07:12
Creatinine 1.4 mg/dL (0.7-1.3) H 08/04/24 07:12
Glucose 80 mg/dl (70-99) 08/04/24 07:12
Troponins
08/02/24
06:59
Troponin I 1.380 H*
Vital Signs and I&O:
Vital Signs
Temp Pulse Resp BP Pulse Ox
97.9 F 82 18 99/63 95
08/04/24 11:00 08/04/24 11:00 08/04/24 11:00 08/04/24 11:00 08/04/24 11:00
Vital Signs
Temp Pulse Resp BP Pulse Ox
97.9 F 82 18 99/63 95
08/04/24 11:00 08/04/24 11:00 08/04/24 11:00 08/04/24 11:00 08/04/24 11:00
Intake & Output
08/02/24 08/03/24 08/04/24 08/05/24
06:59 06:59 06:59 06:59
Intake Total 760 / 760 250 / 250 290 / 290
Output Total 100 / 100
Balance 760 / 760 250 / 250 190 / 190
Physical Exam
Physical Exam
GEN: No distress, awake, lethargic, oriented to self. sitting in chair. on supp O2
HEENT: mmm
LUNGS: Crackles LLB, no wheezes
CV: Reg, S1/S2, 2/6 apex murmur
ABD: soft, BS+, NT/ND
EXT: trace edema of LLE
--- NOTE | 2024-08-04 13:20 | W.PN.HOSP.TC ---
Today's Communication/Plan
-
dc to SNF
Assessment / Plan
Assessment / Plan
#Acute hypoxic respiratory insufficiency secondary to aspiration bronchitis possibly in combination with CHF
Nursing reports was congested earlier, when I examined he was totally clear, nurse rechecked and agreed.
Probable recurrent 'wet burps' with limited aspiration bronchitis. does not want a feeding tube, will dc on soft food
#Incipient SIRS
#Recent PNA at [place] few months ago Treated there With ABX
-Patient lives at [facility]
WBC 13-->11.5-->11.1-->12.0k
COVID/influenza negative
-Lactate 2.8, Pro-Angelito 0.09
-IV Zosyn 3.375 g Q6
-Incentive spirometry
-Continue home ipratropium�albuterol, Incruse Ellipta or equivalent
-Sputum culture, nasal MRSA
-PT/OT/case management eval\\
REHANA associated with acute illness, resolved
Sepsis-POA
low grade without fever, mild leukocytosis, aspiration bronchitis/PNA, tachycardia
Acute on Chronic HFrEF
#Acute hypoxic respiratory insufficiency secondary NEW onset acute CHF
87% RA, 94% 3 L nasal cannula-->now 96% on room air
BNP 12,400
Monitor I/O, daily weights
-IV Lasix 40 mg once now, held further diuretics due to blood pressure 98/52 will defer to cardiology and watch patient diuresis
-Consulted [facility] cardiology, input appreciated
- 2D echo: Normal left ventricular chamber size.
Mild concentric left ventricular hypertrophy.
Moderately reduced left ventricular systolic function.
Global hypokinesis, with anteroseptum akinesis.
LV ejection fraction is 30-35% by Hinojosa's method of discs.
Moderate to severe mitral regurgitation.
Mild aortic regurgitation.
Moderate tricuspid regurgitation.
Estimated pulmonary artery pressure of 30-35 mmHg, assuming a right atrial
pressure of 8 mmHg.
Mild pulmonic regurgitation.
Dilated aortic root, measuring 3.7 cm at the sinuses of Valsalva and 2.7 cm at
the sinotubular junction.
The IVC is moderately dilated.
No prior echocardiogram for comparison. The ejection fraction is moderately
reduced.
-Family reports has seen Dr. Edgar schmidt which is a personal friend [phone] personal cell you may call and see if he has prior records
Input of cardio appreciated
#Troponin elevation likely secondary to demand ischemia
Troponin 0.561 > Troponin 0.513-->0.509-->1.38
-Consult [facility] cardiology
EKG: NSR 83 bpm T wave inversions lateral leads, ST depression anterior leads V3 V4
CXR: Cardiomegaly with increased pulmonary vascularity suggesting CHF versus atypical acute pulmonary edema
# Hypertension/HTN-benign
BP 102/61 currently
-Continue amlodipine 10 mg daily with hold parameters
#Acute hyperkalemia
K5.2
-Follow BMP
#Renal insufficiency
BUN/Creat 38/1.5
-Follow BMP
08/02 CXR: Findings suggesting CHF with a small probable left pleural effusion. Stable.
Cardiomegaly. Stable
#Acute transaminitis
AST 86, ALT 56 will follow CMP
#Advanced dementia
-Needs assist with all ADLs
#Chronic ambulatory dysfunction-patient is wheelchair-bound
-Uses wheelchair walks once a day with walker and supervision
#HLD
-No current meds
#ICH from fall 2019 with 3 head bleeds, fractured lumbar vertebrae, ribs
As per dgt, pt became orthostatic, passed out and struck head on concrete steps
#Chronic headaches / neck pain
- cont daily tylenol 1000 mg , , 18
#T-jjx-iqeiejjhyxi
-No rate control meds
-No AC coagulation due to prior ICH and falls
-Patient is on aspirin 81 mg daily from prior admission in September 2023
#RBBB chronic
#Asthma-no acute exacerbation
-Continue ipratropium/albuterol every 6 as needed nebs, Incruse Ellipta 1 inhalation at bedtime, montelukast 10 mg at bedtime
#GERD
-No PPI listed
#Chronic back pain/vertebral lumbar fracture from fall 2018
Patient takes scheduled Tylenol 1000 mg )830,1330,1830
#Anxiety/depression
-Continue paroxetine 20 mg daily
#Insomnia
-Melatonin 10 mg at bedtime hold for sedation
#Eczema
-Continue clobetasol 1 application topical twice daily as needed
#Right arm cellulitis September 2023-no current cellulitis
treated inpatient at [facility] with IV antibiotics then oral doxycycline
DVT prophylaxis
sq lovenox
input of cardio appreciated
Met with family today and extensive review
swati Garcia should be the field contact technician,
full review with today
DNR per Yvette and daughter At bedside
dc to SNF
see dictated note
More than 30 minutes spent in discharge including
Final examination of the patient
Summarizing hospital stay
Instructions for continuing care to all relevant caregivers
Preparation of discharge records, prescriptions, and referral forms
Total time spent (in minutes): 45
Anticipated Discharge: Today
Subjective/Interval History
-
Date of Service: August 04, 2024
Calm at present
Objective Data
-
Labs:
Laboratory Results
08/04/24
07:12
WBC 12.0 H
Hgb 12.5 L
Hct 37.7 L
Plt Count 251
Sodium 142
Potassium 3.9
Chloride 105
Carbon Dioxide 25
BUN 35 H
Creatinine 1.4 H
Glucose 80
Calcium 9.0
Total Bilirubin 1.1
AST 53
ALT 59 H
Alkaline Phosphatase 90
Vital Signs:
Vital Signs
Temp Pulse Resp BP Pulse Ox
97.9 F 82 18 99/63 95
08/04/24 11:00 08/04/24 11:00 08/04/24 11:00 08/04/24 11:00 08/04/24 11:00
I&O
08/03/24 08/04/24 08/05/24
06:59 06:59 06:59
Intake Total 250 / 250 290 / 290
Output Total 100 / 100
Balance 250 / 250 190 / 190
Review of Systems
-
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
History Source: Family (met with , dgt and s-i-l in room)
Constitutional: Denies Fever
EENT: Reports No Symptoms Reported
Respiratory: Reports Cough
Cardiac: Reports No Symptoms
Abdomen/GI: Reports No Symptoms
Physical Exam
-
General: Well Developed, Well Nourished, No Apparent Distress and Appears Chronically Ill
HEENT: Normocephalic, Atraumatic and Moist Mucous Membranes
Respiratory: Negative Rales (resolved) or Rhonchi (rhonchus cough resolved)
Cardiac: Regular Rhythm and S1/S2
GI: Soft, Nontender and Nondistended
Neuro: Awake; Negative Alert or Oriented
[2024-08-04 15:00] VITALS: BP 106/47
--- NOTE | 2024-08-04 15:42 | W.DS.TRANS ---
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
-
Discharge Instructions:
Discharge Diagnosis/Procedures Recurrent Aspirations
Diet Chop all food,Restrict fluids to 64 oz,Low
Sodium
Additional Diets Pt can eat soft food (meatloaf, not steak)
Activity As tolerated
Driving Restrictions No driving
Bathing Restrictions None
Blood Work CMP,CBC in 1 week
Specialty Instructions Weigh Daily
Instructions: *PCP/Other Radiological Engineer Heart Failure Instructions
Stand-Alone Forms:
Changes to Home Medications: Yes
Discharge Medications:
DC Medications w/original date entered in [facility]
ipratropium bromide 21 mcg (0.03 %) nasal spray 1 spray intranasal HS ASTHMA 09/16/23
montelukast 10 mg tablet 10 mg PO HS ASTHMA 09/16/23
potassium chloride 10 mEq tablet,extended release 10 meq PO DAILY HYPOKALEMIA 09/16/23
umeclidinium 62.5 mcg/actuation blister powder for inhalation (Incruse Ellipta) 1 inh inhalation R QPM ASTHMA 09/16/23
acetaminophen 500 mg tablet 1,000 mg PO TID@0830,1330,1830 Pain 09/17/23
aspirin 81 mg tablet,delayed release 81 mg PO DAILY Blood Clot Prevention/Tx 07/31/24
bisacodyl 10 mg rectal suppository (Dulcolax (bisacodyl)) 10 mg AR DAILYPRN PRN q 3 days when no bm & mom is ineffective 07/31/24
clobetasol 0.05 % topical cream 1 applic topical BIDPRN PRN eczema 07/31/24
dextromethorphan-guaifenesin 10 mg-100 mg/5 mL oral liquid (Tussin DM) 10 ml PO Q4HPRN PRN cough 07/31/24
ipratropium 0.5 mg-albuterol 3 mg (2.5 mg base)/3 mL nebulization soln 3 ml inhalation R Q6HPRN PRN wheezing 07/31/24
loratadine 10 mg tablet 10 mg PO HS 07/31/24
magnesium hydroxide 400 mg/5 mL oral suspension (Milk of Magnesia) 30 ml PO HSPRN PRN constipation/lack of bm 07/31/24
melatonin 10 mg tablet 10 mg PO HS 07/31/24
paroxetine HCl 20 mg tablet 20 mg PO DAILY Mental Health/Anxiety 07/31/24
pyrithione zinc 1 % shampoo 1 applic topical WESA 07/31/24
amlodipine 5 mg tablet 5 mg PO QPM #0 tabs 08/04/24
atorvastatin 40 mg tablet 40 mg PO QPM #0 tabs 08/04/24
furosemide 40 mg tablet 40 mg PO DAILY #0 tabs 08/04/24
Home Medication Changes
Norvasc dose decreased to 5 mg daily
Lipitor started
Lasix added
Pending Results: No
--- NOTE | 2024-08-04 16:13 | CM ---
Patient discharging back to [facility]
Called Dawn Tita and she stated she would like 5pm transport
IMM explained. In chart
Nathan Girard
Report: [phone]
[2024-08-04] MEDS: NORVASC PO (18:11)
[2024-08-04] MEDS: LIPITOR 40 MG PO (18:11)
[2024-08-04] MEDS: LOVENOX 40 MG SC (18:12)
[2024-08-04] MEDS: SPIRIVA RESPIMAT 2.5 MCG INH (19:27)
== END 2024-08-04 19:38 | DRG 871 ==
LOC: 4 WEST ACU 19:07
PROVIDERS: Clinical Nurse Specialist Family Health; Physician Assistant; ADMITTING PHYSICIAN Internal Medicine; ATTENDING PHYSICIAN Internal Medicine; CONSULT PHYSICIAN Internal Medicine Cardiovascular Disease; EMERGENCY PHYSICIAN Emergency Medicine
DX: A41.89 Other specified sepsis (principal); I50.23 Acute on chronic systolic (congestive) heart failure; J69.0 Pneumonitis due to inhalation of food and vomit; J96.01 Acute respiratory failure with hypoxia; N17.9 Acute kidney failure, unspecified; Z99.3 Dependence on wheelchair; I11.0 Hypertensive heart disease with heart failure; E87.5 Hyperkalemia; E78.00 Pure hypercholesterolemia, unspecified; I48.0 Paroxysmal atrial fibrillation; K21.9 Gastro-esophageal reflux disease without esophagitis
CPT/HCPCS: 71045; 71046; 80053; 80061; 83605; 83880; 84145; 84484; 85025; 87070; 87502; 87811; 92526; 92610; 93005; 93306; 93307; 94640; 96374; 96375; 97162; 97166; 99285; Q9957

== ENCOUNTER → 2024-08-08 10:00 | Outpatient (REF) | payer MEDICARE, OTHER, SELFPAY ==
[2024-08-08 12:32] LABS: Hemoglobin 12.3 g/dL (13.0-18.0); Mean Corp Hgb Conc. 32.4 g/dL (33.0-37.0); Mean Corpuscular Hgb 32.5 pg (27.0-31.0); Mean Corpuscular Volume 100.3 fL (80.0-94.0); Mean Platelet Volume 10.5 fL (7.4-10.4); Platelet Count 222 10^3/uL (130-400); Red Blood Cell Count 3.79 10^6/uL (4.70-6.10); Red Cell Dist. Width 14.7 % (11.5-14.5); White Blood Cell Count 10.9 10^3/uL (4.8-10.8)
[2024-08-08 12:45] LABS: ALT (SGPT) 87 U/L (0-50); AST (SGOT) 143 U/L (17-59); Albumin 3.3 g/dl (3.5-5.0); Alkaline Phosphatase 260 U/L (38-126); Blood Urea Nitrogen 27 mg/dl (9-20); Calcium 9.1 mg/dl (8.4-10.2); Carbon Dioxide 25 mmol/L (22-30); Chloride 108 mmol/L (98-107); Glucose 83 mg/dl (70-99); Potassium 4.2 mmol/L (3.5-5.1); Sodium 142 mmol/L (135-145); Total Bilirubin 0.9 mg/dl (0.2-1.3); Total Protein 6.4 g/dl (6.3-8.2); eGFR > 60.00
== END ==
LOC: OLABN 10:00
PROVIDERS: ATTENDING PHYSICIAN Student in an Organized Health Care Education/Training Program
DX: I10 Essential (primary) hypertension (principal); D64.9 Anemia, unspecified
CPT/HCPCS: 80053; 85027

== ENCOUNTER → 2024-08-18 13:17 | Outpatient (REF) | payer MEDICARE, OTHER, SELFPAY ==
[2024-08-19 14:01] LABS: Urine Albumin 2+ (Neg - Trace); Urine Bilirubin Negative (Negative); Urine Character Very Cloudy (Clear); Urine Color Yellow; Urine Glucose Negative (Negative); Urine Ketone Negative (Negative); Urine Leukocyte Negative (Negative); Urine Nitrite Negative (Negative); Urine Occult Blood 2+ (Negative); Urine Urobilinogen 1+ (Neg - 1+)
[2024-08-19 14:19] LABS: Urine Amorphous Seen; Urine Granular Cast >15 /LPF (0)
[2024-08-19 14:21] LABS: Urine Bacteria Moderate (Negative)
== END ==
LOC: OLABN 13:17
PROVIDERS: ATTENDING PHYSICIAN Student in an Organized Health Care Education/Training Program
DX: D72.829 Elevated white blood cell count, unspecified (principal); N39.0 Urinary tract infection, site not specified
CPT/HCPCS: 81003; 81015; 87086